=== PATIENT | male | born 1950 | race Caucasian/White ===

== ENCOUNTER 2023-02-02 12:14 | Outpatient (REF) | payer MEDICARE, SELFPAY | END 2023-02-02 12:15 | disposition home or self-care (01) | LOC: HO.LNP 12:14 | PROVIDERS: Visit Provider Internal Medicine | DX: Z00.00 Encounter for general adult medical examination without abnormal findings (principal); Z12.5 Encounter for screening for malignant neoplasm of prostate; E78.00 Pure hypercholesterolemia, unspecified; E11.9 Type 2 diabetes mellitus without complications; I10 Essential (primary) hypertension | CPT/HCPCS: 80053; 80061; 81001; 82043; 83036; 84153; 85025 ==

== ENCOUNTER 2023-08-11 10:36 | Outpatient (REF) | payer MEDICARE, SELFPAY ==
[2023-08-11 11:06] LABS: Estimated Average Glucose 160 mg/dL; Hemoglobin A1c % 7.2 % (<6.0)
[2023-08-11 11:14] LABS: Alanine Aminotransferase 41 U/L (0-40); Albumin Level 4.5 g/dL (3.5-5.0); Alkaline Phosphatase 79 U/L (39-117); Aspartate Amino Transferase 43 U/L (5-37); Bilirubin Direct 0.3 mg/dL (0.0-0.5); Bilirubin Total 0.8 mg/dL (0.0-1.0); Cholesterol 117 mg/dL (<200); Glucose Fasting 166 mg/dL (60-99); HDL Cholesterol 35 mg/dL (>40); LDL Cholesterol Calculated 50 mg/dL (<100); Triglycerides 161 mg/dL (<150)
[2023-08-11 13:28] LABS: Reflex LDLD? No
== END 2023-08-11 10:37 | disposition home or self-care (01) ==
LOC: HO.LNP 10:36
PROVIDERS: Visit Provider Internal Medicine
DX: E11.9 Type 2 diabetes mellitus without complications (principal); E78.00 Pure hypercholesterolemia, unspecified
CPT/HCPCS: 80061; 80076; 82947; 83036

== ENCOUNTER 2024-02-04 11:12 | Outpatient (REF) | payer MEDICARE, SELFPAY ==
[2024-02-04 11:17] LABS: MANUAL DIFF FLAG NO
[2024-02-04 11:42] LABS: Basophils Percent Auto 0.5 % (0-2); Eosinophils Absolute Auto 0.3 X10*3/uL (0.0-0.4); Eosinophils Percent Auto 3.8 % (0-4); Hematocrit 43.5 % (42.0-52.0); Hemoglobin 14.9 g/dl (14.0-18.0); Imm Gran Abs Auto 0.01 X10*3/uL (0.00-0.03); Imm Gran Pct Auto 0.1 % (0.0-0.4); Lymphocytes Percent Auto 39.5 % (20-40); Mean Corpuscular HGB Conc 34.3 g/dl (31.0-36.0); Mean Corpuscular Hemoglobin 31.2 pg (27.0-33.0); Mean Corpuscular Volume 91.2 fL (80.0-98.0); Mean Platelet Volume 10.2 fL (9.4-12.4); Monocytes Absolute Auto 0.6 X10*3/uL (0.1-1.2); Monocytes Percent Auto 8.3 % (2-11); Neutrophils Absolute Auto 3.6 x10*3/uL (2.0-8.3); Neutrophils Percent Auto 47.8 % (45-73); Platelet Count 210 X10*3/uL (160-400); Red Blood Count 4.77 X10*6/uL (4.60-5.80); White Blood Count 7.6 X10*3/uL (4.8-10.8)
[2024-02-04 11:49] LABS: Estimated Average Glucose 206 mg/dL; Hemoglobin A1c % 8.8 % (<6.0)
[2024-02-04 11:53] LABS: Alanine Aminotransferase 43 U/L (0-40); Albumin Level 4.4 g/dL (3.5-5.0); Alkaline Phosphatase 81 U/L (39-117); Anion Gap 13 (12-20); Aspartate Amino Transferase 45 U/L (5-37); Bilirubin Total 0.7 mg/dL (0.0-1.0); Blood Urea Nitrogen 24 mg/dL (9-16); Calcium 10.1 mg/dL (8.4-10.2); Carbon Dioxide 27 mmol/L (22-29); Chloride 102 mmol/L (96-108); Cholesterol 120 mg/dL (<200); Estimated Glomerular Filt Rate > 60; Glucose Fasting 158 mg/dL (60-99); HDL Cholesterol 34 mg/dL (>40); LDL Cholesterol Calculated 58 mg/dL (<100); Sodium 138 mmol/L (135-145); Total Protein 7.5 g/dL (6.5-8.0); Triglycerides 142 mg/dL (<150)
[2024-02-04 12:14] LABS: PSA,Total (Free>4and<10) 2.41 ng/mL (0.00-4.00)
[2024-02-04 12:23] LABS: Appearance Urine Clear; Color Urine Yellow; Glucose Urine UA Negative (Negative); Leukocyte Esterase Urine Negative (Negative); Nitrite Urine Negative (Negative); Specific Gravity - Urine 1.025 (1.005-1.025); Urine Blood Negative (Negative); Urine Ketones Negative (Negative); Urine Protein Trace mg/dL (Neg-Trace)
[2024-02-04 12:31] LABS: Bacteria Urine None Seen (None Seen); Creatinine Urine 188.52 mg/dL; Hyaline Casts Urine 0-2 /LPF (0-2); Microalbum/Creatinine Ratio Ur 19.6 ug/mg cr (<30); RBC Urine 0-2 /HPF (0-2); Squamous Epithelial Cell Urine 0-2 /HPF (0-2); WBC Urine 0-5 /HPF (0-5)
== END 2024-02-04 11:13 | disposition home or self-care (01) ==
LOC: HO.LNP 11:12
PROVIDERS: Visit Provider Internal Medicine
DX: E11.9 Type 2 diabetes mellitus without complications (principal); E78.00 Pure hypercholesterolemia, unspecified; I10 Essential (primary) hypertension; Z12.5 Encounter for screening for malignant neoplasm of prostate
CPT/HCPCS: 80053; 80061; 81001; 82043; 82570; 83036; 84153; 85025

== ENCOUNTER 2024-08-09 10:52 | Outpatient (REF) | payer MEDICARE, SELFPAY ==
[2024-08-09 11:15] LABS: Estimated Average Glucose 137 mg/dL; Hemoglobin A1C 184.4716 umol/L; Hemoglobin A1c % 6.4 % (<6.0); Total Hemoglobin (HGBA1C) 3998.0713 umol/L
[2024-08-09 11:22] LABS: Alanine Aminotransferase 32 U/L (0-40); Albumin Level 4.4 g/dL (3.5-5.0); Alkaline Phosphatase 71 U/L (39-117); Aspartate Amino Transferase 34 U/L (5-37); Bilirubin Direct 0.2 mg/dL (0.0-0.5); Bilirubin Total 0.7 mg/dL (0.0-1.0); Cholesterol 115 mg/dL (<200); Glucose Fasting 121 mg/dL (60-99); HDL Cholesterol 33 mg/dL (>40); LDL Cholesterol Calculated 51 mg/dL (<100); Total Protein 7.7 g/dL (6.5-8.0); Triglycerides 159 mg/dL (<150)
[2024-08-09 14:04] LABS: Reflex LDLD? No
== END 2024-08-09 10:53 | disposition home or self-care (01) ==
LOC: HO.LNP 10:52
PROVIDERS: Visit Provider Internal Medicine
DX: E11.9 Type 2 diabetes mellitus without complications (principal); E78.00 Pure hypercholesterolemia, unspecified
CPT/HCPCS: 80061; 80076; 82947; 83036

== ENCOUNTER 2025-02-09 11:06 | Outpatient (REF) | payer MEDICARE, SELFPAY ==
--- OUTSIDE RECORDS SUMMARY | 2025-02-09 03:00 | XMS_ITS ---
Author Organization Rancho Lopez MD Address [address] [place] [id number] Care Team Providers Care Concierge Receptionist Name Role Phone JohnKyleighn Primary Care Provider [phone] REASON FOR VISIT yearly fasting labs Encounters Encounter Location Date Provider Diagnosis Rancho Lopez MD [address] [place] [phone] 02/09/2025 Rancho Lopez Blood tests for rout ine general physical examination Z00.00 ; Type 2 diabetes mellitus without complication E11.9 ; Pure hypercholesterolemia E78.00 and Essential hypertension I10 Assessments Encounter Date Diagnosis (ICD Code) Assessment Notes Treatment Notes Treatment Clinical Notes Section Notes 02/09/2025 Blood tests for rout ine general physical examination (ICD-10 - Z00.00) 02/09/2025 Type 2 diabetes shaquille itus without complication (ICD-10 - E11.9) 02/09/2025 Pure hypercholesterolemia (ICD-10 - E78.00) 02/09/2025 Essential hypertensi on (ICD-10 - I10) Plan Of Treatment Pending Test Test Name Order Date Complete Blood Count Auto Diff 5 Comprehensive [place]. Panel Fast 5 Lipid Panel 02/09/2025 PSA,Total (Free>4and<10) 02/09/2025 Microalbumin, Random 02/09/2025 Hemoglobin A1c 02/09/2025 UA ClnCatch+Micro w/rflx Cult 02/09/2025 Next Appt Details Provider Name:Rancho Oleary ier, 02/16/2025 08:00:00 AM, [address] [facility], [address], [place], [place], [phone], Progress Notes * Celestine JOYCE LDOB:[birth year] (75 yo M)Acc No.[id number]:02/09/2025 Progress Note Patient: Celestine GASTON Provider: Ankita Lopez MD :1950 A ge:75 Y S ex:Male Date:02/09/2025 Address:[address] [place] [address], [facility] Subjective: * Chief Complaints: * 1 . Yearly fasting labs. * Medical History: Objective: * Vitals: Assessment: * Assessment: 1. B lood tests for routine general physical examination - Z00.00 (Primary) 2 .?Type 2 diabetes mellitus without complication - E11.9 3 . P ure hypercholesterolemia - E78.00 4 . E ssential hypertension - I10 Plan: * Treatment: 2. T ype 2 diabetes mellitus without complication L AB: Complete Blood Count Auto Diff L AB: Comprehensive [place]. Panel Fast L AB: Lipid Panel L AB: PSA,Total (Free>4and<10) L AB: Microalbumin, Random L AB: Hemoglobin A1c L AB: UA ClnCatch+Micro w/rflx Cult 3. P ure hypercholesterolemia L AB: Complete Blood Count Auto Diff L AB: Comprehensive [place]. Panel Fast L AB: Lipid Panel L AB: PSA,Total (Free>4and<10) L AB: Microalbumin, Random L AB: Hemoglobin A1c L AB: UA ClnCatch+Micro w/rflx Cult 4. E ssential hypertension L AB: Complete Blood Count Auto Diff L AB: Comprehensive [place]. Panel Fast L AB: Lipid Panel L AB: PSA,Total (Free>4and<10) L AB: Microalbumin, Random L AB: Hemoglobin A1c L AB: UA ClnCatch+Micro w/rflx Cult * Procedure Codes: 3 6415 VENIPUNCT, ROUTINE* * * The named appointment provid er may or may not be the originator of this progress note, and it is not deemed complete until electronically signed by the appointment provider. Sign off status: Pending * Provider: Ankita Lopez MD Date: 02/09/2025 Generated for Marie grider/Misael/Erica on: 02/09/2025 11:58 AM EDT
[2025-02-09 11:12] LABS: MANUAL DIFF FLAG NO
--- OUTSIDE RECORDS SUMMARY | 2025-02-09 11:58 | XMS_ITS | Patient Health Record ---
Author Organization [facility] Address [address] [place] [phone] Care Team Providers Care Leave Coordinator Name Role Phone Rancho Lopez MD Primary Care Provider Jose Weaver [phone] Allergies Allergen (clinical drug ingredient) Drug/Non Drug Allergy documented on EMR Reaction Allergy Type Onset Date Status IVP Dye (uncoded) Unknown Allergy Ac tive Reason For Referral No Information Medications Medication SIG (Take, Route, Fr equency, Duration) Notes Start Date End Date Status Pristiq 50 MG 1 tablet Orally Once a day Active Crestor 40 MG 1 tablet Orally Once a day Active Plavix 75 MG 1 tablet Orally Once a day Active Ambien 5 MG 1 tablet at bedtime Orally Once a day Active MoviPrep 100 GM as directed Orally A S DIRECTED for 1 dose 12/29/2013 Active Problems Problem Type SNOMED Code ICD Code Onset Dates Problem Status W/U Status Risk Notes Problem Screening for malignant neoplasm of colon (344908731) Screening for colorectal cancer (V76.51) Active confirmed Problem Long-term current use of drug therapy (729757958) USP current use of antithrombotics /antiplatelets (V58.63) Active confirmed Plan Of Treatment Future Test Test Name Order Date COLONOSCOPY 12/29/2013 Insurance Providers Payer Name Payer Address Payer Phone Subscriber Number Group Number Insured Name Patient Relationship to Insured Coverage Start Date Coverage End Date [facility] [address] [place]A [id number] TOMMIE KENDALL Self - patient is the insured Medical (General) History Medical History History ICD Code Denies CO,DM,CVA,Lung disease,renal dise ase Hyperlidiemia Depression Neg. colonoscopy in 06/2001 with , and a negative colonoscopy in the early s with Dr. Rush On Plavix for a ? of a TIA Surgical History Surgery Date(Month/Year) knee surgery 2012 back surgery--L5 disc 1997 [facility]
--- OUTSIDE RECORDS SUMMARY | 2025-02-09 11:58 | XMS_ITS ---
[facility] Name [facility] Encounters Encounter Type Encounter Reason Primary Diagnosis Location Date Ambulatory Age-related nucl ear cataract, right eye [facility] 02/24/2022 Ambulatory Age-related nucl ear cataract, left eye [facility] 01/13/2022 Care Team Organization Name Specialty Phone Email Start Date End Da te [facility] 02/24/2022 [facility] 01/13/2022 02/24/2022
--- OUTSIDE RECORDS SUMMARY | 2025-02-09 11:58 | XMS_ITS | Clinical Summary ---
Author Organization [facility] Address [address] [place] [address] Care Team Providers Care Auto Research Engineer Name Role Phone Unknown Primary Care Provider [phone] Social History Tobacco Use Types Packs/Day Years Used Date Smoking Tobacco: Never Assessed Sex and Gender Information Value Date Recorded Sex Assigned at Not on file Legal Sex Male 6:39 PM EST Gender Identity Not on file Sexual Orientation Not on file Plan of Treatment Health Maintenance Due Date Last Done Comments Hepatitis C Virus Screening 1950 DTaP/Tdap/Td Vaccines (1 - Tdap) 01/09/1971 Colonoscopy 01/09/1997 Pneumococcal Vaccines 50+ (1 of 1 - PCV) 01/09/2002 Zoster (Shingles) Vaccine (1 of 2) 01/09/2002 COVID-19 Vaccine (3 - season) 2024 11/15/2020, 10/24/2020 Influenza Vaccine 02/24/2025 04/19/2018, , 04/24/2015, Additional history exists RSV Vaccine 60 years and older and Patients (1 - 1-dose 75+ series) 01/09/2027 Hepatitis B Vaccines Aged Out No long er eligible based on patient's age to complete this topic Medical Devices Implanted Type Area Ignition Expert Device Identifier Shelf Expiration Date Model / Serial / Lot [id number] Implanted:Qty: 1 on 01/13/2022 by Chuck Wilson MD at [facility], [place] [employer] [id number] / [id number] / [id number] Implanted:Qty: 1 on 02/24/2022 by Chuck Wilson MD at [facility], [place] [employer] [employer] [id number] / [id number] / [place] [id number] [employer] Care Teams Auto Research Engineer Relationship Specialty Start Date End Date Unknown Unknow Provider Address PCP - General 02/14/22
[2025-02-09 12:02] LABS: Hematocrit 45.2 % (42.0-52.0); Hemoglobin 15.4 g/dl (14.0-18.0); Imm Gran Abs Auto 0.02 X10*3/uL (0.00-0.03); Imm Gran Pct Auto 0.3 % (0.0-0.4); Lymphocytes Absolute Auto 3.2 X10*3/uL (1.2-4.9); Mean Corpuscular HGB Conc 34.1 g/dl (31.0-36.0); Mean Corpuscular Hemoglobin 30.9 pg (27.0-33.0); Mean Corpuscular Volume 90.8 fL (80.0-98.0); NRBC Abs Auto 0.000 X10*3/uL (0.0-0.012); NRBC Pct Auto 0.0 /100WBC (0.0-0.2); Platelet Count 220 X10*3/uL (160-400); Red Blood Count 4.98 X10*6/uL (4.60-5.80); White Blood Count 7.7 X10*3/uL (4.8-10.8)
[2025-02-09 12:13] LABS: Alanine Aminotransferase 58 U/L (0-40); Albumin Level 4.5 g/dL (3.5-5.0); Alkaline Phosphatase 86 U/L (39-117); Anion Gap 13 (12-20); Appearance Urine Clear; Aspartate Amino Transferase 45 U/L (5-37); Blood Urea Nitrogen 16 mg/dL (9-16); Calcium 9.4 mg/dL (8.4-10.2); Carbon Dioxide 27 mmol/L (22-29); Chloride 103 mmol/L (96-108); Cholesterol 232 mg/dL (<200); Estimated Glomerular Filt Rate > 60; Glucose Urine UA Negative (Negative); HDL Cholesterol 37 mg/dL (>40); PH 5.0 (5.0-9.0); Potassium 4.5 mmol/L (3.3-5.1); Sodium 138 mmol/L (135-145); Specific Gravity - Urine 1.020 (1.005-1.025); Total Protein 7.5 g/dL (6.5-8.0); Triglycerides 222 mg/dL (<150)
[2025-02-09 12:16] LABS: Microalbum/Creatinine Ratio Ur 16.0 ug/mg cr (<30)
[2025-02-09 12:22] LABS: Hemoglobin A1C 198.8246 umol/L; Total Hemoglobin (HGBA1C) 3989.6279 umol/L
[2025-02-09 12:32] LABS: PSA,Total (Free>4and<10) 2.55 ng/mL (0.00-4.00)
== END 2025-02-09 11:07 | disposition home or self-care (01) ==
LOC: HO.LNP 11:06
PROVIDERS: Visit Provider Internal Medicine
DX: Z00.00 Encounter for general adult medical examination without abnormal findings (principal); I10 Essential (primary) hypertension; E11.9 Type 2 diabetes mellitus without complications; E78.00 Pure hypercholesterolemia, unspecified
CPT/HCPCS: 80053; 80061; 81001; 82043; 82570; 83036; 84153; 85025

== ENCOUNTER 2025-05-19 10:41 | Outpatient (REF) | payer MEDICARE, SELFPAY ==
--- OUTSIDE RECORDS SUMMARY | 2024-02-11 04:00 | XMS_ITS ---
Author Organization Rancho Lopez MD Address [address] [place] [phone] Care Team Providers Care Medical Tech Name Role Phone Rancho Lopez Primary Care Provider Allergies Allergen (clinical drug ingredient) Drug/Non Drug Allergy documented on EMR Reaction Allergy Type Onset Date Status paroxetine Paxil sexual dysfunction Drug Allergy Active lisinopril Lisinopril cough Drug Allergy Activ e ivp dye (uncoded) SWELLING Allergy Ac tive Results Component Value Reference Range Notes Occult Blood, Stool, Guaiac Reviewed date:02/11/2024 10:26:04 AM Interpretation:Negative Performing Lab: Notes/Report: Negative Occult Blood, Stool, Guaiac Neg REASON FOR VISIT ANNUAL EXAM, CBACK A1C Medications Medication SIG (Take, Route, Frequency, Duration) Notes Start Date End Date Status Ambien 5 MG 1 tablet at bedtime Orally Once a day 08/22/2011 Not-Taking CeleBREX 200 MG 1 capsule Orally Onc e a day for 90 days 05/20/2016 Not-Taking Trulicity 0.75 MG/0.5ML as directed Subc utaneous weekle for 30 days 02/11/2024 Active Ambien 5 MG 1 tablet at bedtime Orally Once a day for 90 days 07/04/2016 Not-Taking Valsartan-hydroCHLOROthi azide 80-12.5 MG TAKE ONE TABLET BY MOUTH EVERY DAY Orally Once a day for 90 days Active Ketoconazole 2 % 1 application to affected area Externally Once a day for 30 days 10/15/2018 Active metFORMIN HCl 500 MG TAKE 1 TABLET BY MO [facility] DAILY WITH MEALS Orally twice a day for 90 days Active Rosuvastatin Calcium 40 MG TAKE ONE TABLET BY MOUTH ONCE DAILY Active Aspirin Adult Low Dose 81 MG 1 tablet Orally Once a day for 30 day(s) 01/12/2018 Active Social History Tobacco Use: Social History Observation Description Date Details (start date - stop date) Former Smoker NA - NA Tobacco Use/Smoking Question Answer Notes Patient is a former smoker How long has it been since y ou last smoked? > 10 years Additional Findings: Tobacco Non-User Fo rmer smoker, currently using no form of tobacco Alcohol Screen Question Answer Notes Did you have a drink containing alcohol in the p ast year? No Points 0 Interpretation Negative Problems Problem Type SNOMED Code ICD Code Onset Dates Problem Status W/U Status Risk Notes Problem [id number] DESMOND (obstructive sleep apnea) (G47.33) Active confirmed Vital Signs Blood pressure systolic 104 mm Hg 02/11/20 24 Blood pressure diastolic 66 mm Hg 024 Height 67.50 in 02/11/2024 Weight 236 lbs 02/11/2024 BMI 36.41 kg/m2 02/11/2024 weight is up 3 pounds since 08-18-23 Encounters Encounter Location Date Provider Diagnosis Rancho Lopez MD [address] [place] [address] [address] [place], [place] [phone] 02/11/2024 Rancho Lopez DESMOND (obstructive sle ep apnea) G47.33 ; Annual physical exam Z00.00 ; Type 2 diabetes mellitus without complication E11.9 ; Pure hypercholesterolemia E78.00 ; Essential hypertension I10 ; Colon cancer screening Z12.11 and Encounter for screening for depression Z13.31 Assessments Encounter Date Diagnosis (ICD Code) Assessment Notes Treatment Notes Treatment Clinical Notes Section Notes 02/11/2024 DESMOND (obstructive sle ep apnea) (ICD-10 - G47.33) sounds like he has it. refuses a study. 02/11/2024 Annual physical exam (ICD-10 - Z00.00) labs reviewed and discussed with patient 02/11/2024 Type 2 diabetes mellitus without complication (ICD-10 - E11.9) patient verbalized understanding of medication and dirctions for use 02/11/2024 Pure hypercholesterolemia (ICD-10 - E78.00) stable, will continue current regiment 02/11/2024 Essential hypertensi on (ICD-10 - I10) stable, will continue current regiment 02/11/2024 Colon cancer screeni ng (ICD-10 - Z12.11) guaiac negative 02/11/2024 Encounter for screen ing for depression (ICD-10 - Z13.31) negative screen Plan Of Treatment Medication Medication Name Sig Start Date Stop Date Notes Trulicity 0.75 MG/0.5ML as directed Subc utaneous weekle for 30 days 02/11/2024 Treatment Notes Assessment Notes DESMOND (obstructive sleep apnea) sounds lik e he has it. refuses a study. Annual physical exam labs reviewed and d iscussed with patient Type 2 diabetes mellitus without complic ation patient verbalized understanding of medication and dirctions for use Pure hypercholesterolemia stable, will c ontinue current regiment Essential hypertension stable, will cont inue current regiment Colon cancer screening guaiac negative Encounter for screening for depression n egative screen Next Appt Details Follow Up: 3 Months, Reason: Provider Name:Rancho gurrola, 05/26/2025 10:15:00 AM, [address] [place] [address], [address], [phone], Provider Name:Rancho gurrola, 02/12/2026 07:45:00 AM, [address] [place] [address], [address], [phone], Provider Name:Rancho gurrola, 02/19/2026 09:30:00 AM, [address] [place] [address], [address], [phone], Progress Notes * Celestine JOYCE LDOB:[birth year] (74 yo M)Acc No.[id number]:02/11/2024 Progress Notes Patient: Bonnie kristyCelestine castillo Provider: Ankita Lopez MD :1950 A ge:74 Y S ex:Male Date:02/11/2024 Address:[address] [place], [place] [address], [id number] Subjective: * Chief Complaints: * A NNUAL EXAMCBACK A1C * HPI: D epression Screening: PHQ-9 L ittle interest or pleasure in doing things N ot at all, F eeling down, depressed, or hopeless N ot at all, T rouble falling or staying asleep, or sleeping too much N ot at all, F eeling tired or having little energy N ot at all, P oor appetite or overeating N ot at all, F eeling bad about yourself or that you are a failure, or have let yourself or your family down N ot at all, T rouble concentrating on things, such as reading the newspaper or watching television N ot at all, M oving or speaking so slowly that other people could have noticed; or the opposite, being so fidgety or restless that you have been moving around a lot more than usual N ot at all, T houghts that you would be better off or of hurting yourself in some way N ot at all, T otal Score 0 . I nterpretation and Intervention D epression Screening Findings N egative, F ollow-Up for Depression : review of PHQ-9 found negative result, no follow-up needed. C ommunication Needs: Communication Needs D oes the patient have a hearing impairment N o, D oes the patient have a vision impairment? Y es, I f yes, what is the vision impairment? G lasses, D oes the patient have a cognition impairment? N o. F all Risk: History H ave you had any falls with injury in the past year? N o, H ave you had two or more falls in the past year? N o. S SUGAR Questions: SDOH Questions I n the past year have you been worried about losing housing? N o, I n the past year have you or any family members you live with been unable to get any of the following when it was really needed? Check all that apply: N one. S ymptom(s): patient is a 74 yo male here for annual visit with review of recent labs and follow up of chronic issues, in morning wakes up and is tired. * ROS: G eneral/Constitutional: Patient denies f atigue , headache. C hange in appetite?denies. C hills d enies. F ever d enies. O phthalmologic: Blurred vision d enies. D ischarge d enies. P ain d enies. E NT: Patient denies d ecreased sense of smell , any loss of taste , sore throat. D ecreased hearing d enies. S ore throat d enies. S wollen glands d enies. E ndocrine: Cold intolerance d enies. E xcessive thirst d enies. H eat intolerance d enies. W eight loss d enies. R espiratory: Cough d enies. S hortness of breath at rest d enies. S hortness of breath with exertion d enies. W heezing d enies. C ardiovascular: Chest pain at rest d enies. C hest pain with exertion?denies. I rregular heartbeat d enies. S hortness of breath d enies. ? G astrointestinal: Abdominal pain d enies. C hange in bowel habits d enies. D iarrhea d enies. N ausea d enies. R ectal bleeding d enies. V omiting d enies . G enitourinary: Blood in urine d enies. D ifficulty urinating d enies. F requent urination d enies. M usculoskeletal: Patient denies m uscle aches. P ainful joints d enies. W eakness d enies. P eripheral Vascular: Patient denies r ed and blue toes. S kin: Dry skin d enies. I tching d enies. D enies?Mole(s), changes in moles, new moles or any lesions of concern. D enies P hotosensitivity. R familia d enies. N eurologic: Dizziness d enies. F ainting d enies. H eadache?denies. * Medical History: * Surgical History: * Hospitalization/Major Diagno stic Procedure: * Family History: F ather: 70 yrs, diagnosed with Cancer. M other: 62 yrs, diagnosed with Cancer. 1 daughter(s) . . No pertinent family medical history, Denies mental health/substance abuse family history, No pertinent family medical history. * Social History: T obacco Use: T obacco Use/Smoking P atient is a f ormer smoker, H ow long has it been since you last smoked? > 10 years, A dditional Findings: Tobacco Non-User F ormer smoker, currently using no form of tobacco. D rugs/Alcohol: A lcohol Screen D id you have a drink containing alcohol in the past year? N o, P oints 0 , I nterpretation N egative. M iscellaneous: C affeine: yes, frequency:, more than 4 cups per day. Children: yes. no Community involvements. Exercise: yes, yardwork hike fishing. Home smoke detector use: yes. Housing: owning. Living with: spouse. Marital status: . Occupation: retired. Pets: cats:1. no Travel outside of the [place]. * Medications: T akingAspirin Adult Low Dose 81 MG Tablet Delayed Release 1 tablet Orally Once a daymetFORMIN HCl 500 MG Tablet TAKE 1 TABLET BY MOUTH DAILY WITH MEALS Orally twice a dayRosuvastatin Calcium 40 MG Tablet TAKE ONE TABLET BY MOUTH ONCE DAILY Ketoconazole 2 % Cream 1 application to affected area Externally Once a dayValsartan-hydroCHLOROthiazide 80-12.5 MG Tablet TAKE ONE TABLET BY MOUTH EVERY DAY Orally Once a dayTaking Aspirin Adult Low Dose 81 MG Tablet Delayed Release 1 tablet Orally Once a dayTaking metFORMIN HCl 500 MG Tablet TAKE 1 TABLET BY MOUTH DAILY WITH MEALS Orally twice a dayTaking Rosuvastatin Calcium 40 MG Tablet TAKE ONE TABLET BY MOUTH ONCE DAILY Taking Ketoconazole 2 % Cream 1 application to affected area Externally Once a dayTaking Valsartan-hydroCHLOROthiazide 80-12.5 MG Tablet TAKE ONE TABLET BY MOUTH EVERY DAY Orally Once a dayNot-Taking/PRNCeleBREX 200 MG Capsule 1 capsule Orally Once a dayAmbien 5 MG Tablet 1 tablet at bedtime Orally Once a dayAmbien 5 MG Tablet 1 tablet at bedtime Orally Once a dayMedication List reviewed and reconciled with the patientNot-Taking/PRN CeleBREX 200 MG Capsule 1 capsule Orally Once a dayNot-Taking/PRN Ambien 5 MG Tablet 1 tablet at bedtime Orally Once a dayNot-Taking/PRN Ambien 5 MG Tablet 1 tablet at bedtime Orally Once a dayMedication List reviewed and reconciled with the patient * Allergies: i vp product management dye: SWELLINGPaxil: sexual dysfunctionLisinopril: coughyes[Allergies Verified] Objective: * Vitals: H t: 67.50, Wt:236, BMI:36.41, BP:104/66 weight is up 3 pounds since 08-18-23. * P ast Orders: L ab:Lipid Panel (Order Date - 02/04/2024) (Collection Date - 02/04/2024) Value Reference Range Triglycerides 142 <150 - mg/dL Cholesterol 120 <200 - mg/dL LDL Cholesterol Calculated 58 <100 - mg/dL HDL Cholesterol 34 L >40 - mg/dL L ab:PSA,Total (Free>4and<10) (Order Date - 02/04/2024) (Collection Date - 02/04/2024) Value Reference Range PSA,Total (Free>4and<10) 2.41 0.00-4.00 - ng/ mL L ab:Microalbumin, Random (Order Date - 02/04/2024) (Collection Date - 02/04/2024) Value Reference Range Creatinine Urine 188.52 - mg/dL Microalbumin Urine 37.0 - mg/L Microalbum Creatinine Ratio Ur 19.6 <30 - ug/ mg cr L ab:UA ClnCatch+Micro w/rflx Cult (Order Date - 02/04/2024) (Collection Date - 02/04/2024) Value Reference Range Color Urine Yellow - Appearance Urine Clear - PH 5.0 5.0-9.0 - Glucose Urine UA Negative Negative - mg/dL Urine Blood Negative Negative - Specific [place] - Urine 1.025 1.005-1.025 - Urine Protein Trace Neg-Trace - mg/dL Urine Ketones Negative Negative - mg/dL Nitrite Urine Negative Negative - Leukocyte Esterase Urine Negative Negative - RBC Urine 0-2 0-2 - /HPF WBC Urine 0-5 0-5 - /HPF Squamous Epithelial Cell Urine 0-2 0-2 - /HP F Bacteria Urine None Seen None Seen - Hyaline Casts Urine 0-2 0-2 - /LPF L ab:Complete Blood Count Auto Diff (Order Date - 02/04/2024) (Collection Date - 02/04/2024) Value Reference Range White Blood Count 7.6 4.8-10.8 - X10*3/uL Red Blood Count 4.77 4.60-5.80 - X10*6/uL Hemoglobin 14.9 14.0-18.0 - g/dl Hematocrit 43.5 42.0-52.0 - % Mean Corpuscular Volume 91.2 80.0-98.0 - fL Mean Corpuscular Hemoglobin 31.2 27.0-33.0 - pg Mean Corpuscular HGB Conc 34.3 31.0-36.0 - g/ dl Red Cell Distribution Width 13.0 11.0-16.0 - % Platelet Count 210 160-400 - X10*3/uL Mean Platelet Volume 10.2 9.4-12.4 - fL Neutrophils Percent Auto 47.8 45-73 - % Imm Gran Pct Auto 0.1 0.0-0.4 - % Lymphocytes Percent Auto 39.5 20-40 - % Monocytes Percent Auto 8.3 2-11 - % Eosinophils Percent Auto 3.8 0-4 - % Basophils Percent Auto 0.5 0-2 - % NRBC Pct Auto 0.0 0.0-0.2 - /100WBC Neutrophils Absolute Auto 3.6 2.0-8.3 - x10* 3/uL Imm Gran Abs Auto 0.01 0.00-0.03 - X10*3/uL Lymphocytes Absolute Auto 3.0 1.2-4.9 - X10* 3/uL Monocytes Absolute Auto 0.6 0.1-1.2 - X10*3/ uL Eosinophils Absolute Auto 0.3 0.0-0.4 - X10* 3/uL Basophils Absolute Auto 0.0 0.0-0.2 - X10*3/ uL NRBC Abs Auto 0.000 0.0-0.012 - X10*3/uL L ab:Comprehensive Martin. Panel Fast (Order Date - 02/04/2024) (Collection Date - 02/04/2024) Value Reference Range Sodium 138 135-145 - mmol/L Bilirubin Total 0.7 0.0-1.0 - mg/dL Aspartate Amino Transferase 45 H 5-37 - U/L Alanine Aminotransferase 43 H 0-40 - U/L Total Protein 7.5 6.5-8.0 - g/dL Albumin Level 4.4 3.5-5.0 - g/dL Alkaline Phosphatase 81 39-117 - U/L Potassium 4.0 3.3-5.1 - mmol/L Chloride 102 96-108 - mmol/L Carbon Dioxide 27 22-29 - mmol/L Anion Gap 13 12-20 - Blood Urea Nitrogen 24 H 9-16 - mg/dL Creatinine 1.06 0.5-1.4 - mg/dL Estimated Glomerular Filt Rate > 60 - Glucose Fasting 158 H 60-99 - mg/dL Calcium 10.1 8.4-10.2 - mg/dL L ab:Hemoglobin A1c (Order Date - 02/04/2024) (Collection Date - 02/04/2024) Result: [facility] 02/10 Value Reference Range Hemoglobin A1c % 8.8 H <6.0 - % Estimated Average Glucose 206 - mg/dL * Examination: G eneral Examination: GENERAL APPEARANCE: w ell developed, well nourished, in no acute distress. HEAD: n ormocephalic, atraumatic. EYES: p upils equal, round, reactive to light and accommodation, sclera non-icteric. EARS: n ormal. ORAL CAVITY: m ucosa moist. THROAT: c lear. NECK/THYROID: n haley supple, full range of motion, no cervical lymphadenopathy, no bruits. SKIN: w arm and dry, no suspicious lesions. HEART: r egular rate and rhythm, S1, S2 normal, no murmurs.? LUNGS: c lear to auscultation bilaterally. ABDOMEN: s oft, nontender, nondistended, bowel sounds present, normal, no organomegaly , no masses palpable. RECTAL EXAM: n ormal tone, no external hemorrhoids, no masses palpable, prostate normal, stool guaiac negative. MALE GENITOURINARY: circumcised, no penile lesions or discharge, testes descended bilaterally, no testicular mass. EXTREMITIES: n o clubbing, cyanosis, or edema. NEUROLOGIC: n onfocal, motor strength normal upper and lower extremities, sensory exam intact. PODIATRIC: n ormal pinprick, normal pulse, normal light touch. FOOT EXAM: . Assessment: * Assessment: 1. A nnual physical exam - Z00.00 (Primary) 2 . O SA (obstructive sleep apnea) - G47.33?3. T ype 2 diabetes mellitus without complication - E11.9 4 . P ure hypercholesterolemia - E78.00 5 . E ssential hypertension - I10 6 . C olon cancer screening - Z12.11 7 . E ncounter for screening for depression - Z13.31 Plan: * Treatment: 2. O SA (obstructive sleep apnea) Start Trulicity Solution Pen-injector, 0.75 MG/0.5ML, as directed, Subcutaneous, weekle, 30 days, 4, Refills 1. Notes: sounds like he has it. refuses a study. 3. T ype 2 diabetes mellitus without complication Notes: patient verbalized understanding of medication and dirctions for use. 4. P ure hypercholesterolemia Notes: stable, will continue current regiment. 5. E ssential hypertension Notes: stable, will continue current regiment. 6. C olon cancer screening L AB: Occult Blood, Stool, Guaiac N egative Value Reference Range O ccult Blood, Stool, Guaiac Neg Notes: guaiac negative.??7.?Encounter for screening for depression? Notes: negative screen.?? * Procedure Codes: 8 2270 TEST FOR BLOOD, FECES * Preventive Medicine: Counseling: C are goal follow-up plan: C thaisnseling for abnormal BMI provided?Yes, A keyur Normal BMI Follow-up G yin encouragement to exercise. Diabetes Care Plan: P atient Lifestyle Goals N eeds to maintain diet control.?Treatment Goals A 1C< 7. B arriers N eeds better diet control. S elf-Managment Plan I ncrease light exercise to 3 times a week for 30 minutes. * Follow Up: 3 Months * * Sign off status: Completed true * Provider: Ankita Lopez MD Date: 0 02/11/2024 Generated for Marie grider/Misael/Mariosmitting on: 1 12:20 PM EDT History and Physical Notes * HPI (History of Present Illness) Category Sub-Category Detail Notes Category Not es Symptom(s) patient is a 74 yo male here for annual visit with review of recent labs and follow up of chronic issues, in morning wakes up and is tired Depression Screening PHQ-9 Little inte rest or pleasure in doing things: Not at all Feeling down, depressed, or hopeless: No t at all Trouble falling or staying asleep, or sl eeping too much: Not at all Feeling tired or having little energy: N ot at all Poor appetite or overeating: Not at all Feeling bad about yourself o r that you are a failure, or have let yourself or your family down: Not at all Trouble concentrating on thi ngs, such as reading the newspaper or watching television: Not at all Moving or speaking so slowly that other people could have noticed; or the opposite, being so fidgety or restless that you have been moving around a lot more than usual: Not at all Thoughts that you would be b hung off or of hurting yourself in some way: Not at all Total Score: 0 Interpretation and Intervention Depression Lisa najera Findings: Negative Follow-Up for Depression: : review of PH Q-9 found negative result, no follow-up needed SDOH Questions SDOH Questions In the past year have you been worried about losing housing?: No In the past year have you or any family members you live with been unable to get any of the following when it was really needed? Check all that apply:: None Fall Risk History Have you had any falls with injury i n the past year?: No Have you had two or more falls in the st year?: No Communication Needs Communication Needs Does the patient have a hearing impairment: No Does the patient have a vision impairmen t?: Yes If yes, what is the vision impairment?: Glasses Does the patient have a cognition impair ment?: No Examination Category Sub-Category Detail Notes Category Not es General Examination GENERAL APPEARANCE: well dev eloped, well nourished, in no acute distress HEAD: normocephalic, atrau matic EYES: pupils equal, round, reactive to light and accommodation, sclera non-icteric EARS: normal THROAT: clear NECK/THYROID: neck supple, full ra nge of motion, no cervical lymphadenopathy, no bruits HEART: regular rate and rhy thm, S1, S2 normal, no murmurs LUNGS: clear to auscultatio n bilaterally ABDOMEN: soft, nontender, non distended, bowel sounds present, normal, no organomegaly , no masses palpable NEUROLOGIC: nonfocal, motor stre ngth normal upper and lower extremities, sensory exam intact SKIN: warm and dry, no bong picious lesions EXTREMITIES: no clubbing, cyanosi s, or edema MALE GENITOURINARY: circumcised, no peni le lesions or discharge, testes descended bilaterally, no testicular mass RECTAL EXAM: normal tone, no exte rnal hemorrhoids, no masses palpable, prostate normal, stool guaiac negative ORAL CAVITY: mucosa moist FOOT EXAM: Date: 02/11/2024 normal pinprick . normal pulse. normal light touch. PODIATRIC: normal pinprick, nor mal pulse, normal light touch
--- OUTSIDE RECORDS SUMMARY | 2024-03-07 05:39 | XMS_ITS ---
Author Organization Rancho Lopez MD Address [address] [place] [phone] Care Team Providers Care Exotic Dancer Name Role Phone Rancho Lopez Primary Care Provider Medications Medication SIG (Take, Route, Fr equency, Duration) Notes Start Date End Date Status Trulicity 1.5 MG/0.5ML as directed Subcu taneous weekle for 30 days 02/11/2024 Active Encounters Encounter Location Date Provider Diagnosis Rancho Lopez MD 10 [facility] [address] [place] [phone] 03/07/2024 Rancho Lopez DESMOND (obstructive sleep apnea) G47.33 Assessments Encounter Date Diagnosis (ICD Code) Assessment Notes Treatment Notes Treatment Clinical Notes Section Notes 03/07/2024 DESMOND (obstructive sleep apnea) (ICD-10 - G47.33) Plan Of Treatment Medication Medication Name Sig Start Date Stop Date Notes Trulicity 1.5 MG/0.5ML as directed Subcu taneous weekle for 30 days 02/11/2024 Next Appt Details Provider Name:Rancho gurrola, 05/26/2025 10:15:00 AM, [facility], [address] [place] [address], [phone], Provider Name:Rancho gurrola, 02/12/2026 07:45:00 AM, [address], [address], [place], [phone], Provider Name:Rancho Oleary ier, 02/19/2026 09:30:00 AM, [address], [address], [place], [place], [phone], Progress Notes * Celestine JOYCE LDOB:[birth year] (74 yo M)Acc No.[id number]:03/07/2024 Patient: Celestine Young :1950 A ge:74 Y S ex:Male Address:[address] [place] [address], [place] [address] * Refills Continue Trulicity Solution Pen-injector, 1.5 MG/0.5ML, Subcutaneous, 4, as directed, weekle, 30 days, Refills=3 * true * Date: Generated for Marie grider/Misael/eTkinjalsmitting on: 1 12:21 PM EDT
--- OUTSIDE RECORDS SUMMARY | 2024-04-04 05:54 | XMS_ITS ---
Author Organization Rancho Lopez MD Address [address] [place] [phone] Care Team Providers Care Guitar Instructor Name Role Phone Rancho Lopez Primary Care Provider [phone] REASON FOR VISIT refill Medications Medication SIG (Take, Route, Fr equency, Duration) Notes Start Date End Date Status Trulicity 3 MG/0.5ML as directed Subcuta neous weekle for 30 days 02/11/2024 Active Encounters Encounter Location Date Provider Diagnosis Rancho Lopez MD 10 [facility] [address] [place] [phone] 04/04/2024 Rancho Lopez DESMOND (obstructive sleep apnea) G47.33 Assessments Encounter Date Diagnosis (ICD Code) Assessment Notes Treatment Notes Treatment Clinical Notes Section Notes 04/04/2024 DESMOND (obstructive sleep apnea) (ICD-10 - G47.33) Plan Of Treatment Medication Medication Name Sig Start Date Stop Date Notes Trulicity 3 MG/0.5ML as directed Subcuta neous weekle for 30 days 02/11/2024 Next Appt Details Provider Name:Rancho gurrola, 05/26/2025 10:15:00 AM, [facility], [address] [place] [address], [phone], Provider Name:Rancho gurrola, 02/12/2026 07:45:00 AM, [address], [address], [place], [phone], Provider Name:Rancho Oleary ier, 02/19/2026 09:30:00 AM, [address], [address], [place], [phone], Progress Notes * Celestine JOYCE LDOB:[birth year] (74 yo M)Acc No.[id number]:04/04/2024 Patient: Celestine Young :1950 A ge:74 Y S ex:Male Address:[address] [place] [address], [place] [address] * Refills Refill Trulicity Solution Pen-injector, 3 MG/0.5ML, Subcutaneous, 4, as directed, weekle, 30 days, Refills=3 * true * Date: Generated for Marie grider/Misael/Mariosmitting on: 1 12:20 PM EDT
--- OUTSIDE RECORDS SUMMARY | 2024-05-03 04:45 | XMS_ITS ---
Author Organization Rancho Lopez MD Address [address] [place] [phone] Care Team Providers Care Care Consultant Name Role Phone Rancho Lopez Primary Care Provider [phone] Allergies Allergen (clinical drug ingredient) Drug/Non Drug Allergy documented on EMR Reaction Allergy Type Onset Date Status paroxetine Paxil sexual dysfunction Drug Allergy Active lisinopril Lisinopril cough Drug Allergy Activ e ivp dye (uncoded) SWELLING Allergy Ac tive Results Component Value Reference Range Notes Hemoglobin A1c Reviewed date:05/03/2024 08:45:50 AM Interpretation: Performing Lab: Notes/Report: Hemoglobin A1c 6.9 Glucose, finger stick Reviewed date:05/03/2024 08:38:37 AM Interpretation: Performing Lab: Notes/Report: Value 132 REASON FOR VISIT 3 months Medications Medication SIG (Take, Route, Frequency, Duration) Notes Start Date End Date Status metFORMIN HCl 500 MG TAKE 1 TABLET BY [facility] DAILY WITH MEALS Orally twice a day Active CeleBREX 200 MG 1 capsule Orally Onc e a day for 90 days 05/20/2016 Not-Taking Ambien 5 MG 1 tablet at bedtime Orally Once a day 08/22/2011 Not-Taking Ambien 5 MG 1 tablet at bedtime Orally Once a day for 90 days 07/04/2016 Not-Taking Trulicity 4.5 MG/0.5ML as directed Subcu taneous weekle for 90 days 02/11/2024 Active Aspirin Adult Low Dose 81 MG 1 tablet Orally Once a day for 30 day(s) 01/12/2018 Active Rosuvastatin Calcium 40 MG TAKE ONE TABLET BY MOUTH ONCE DAILY Active Valsartan-hydroCHLOROthi azide 80-12.5 MG TAKE ONE TABLET BY MOUTH EVERY DAY Orally Once a day for 90 days Active Ketoconazole 2 % 1 application to affected area Externally Once a day for 30 days 10/15/2018 Active Vital Signs Blood pressure systolic 132 mm Hg 05/03/20 24 Blood pressure diastolic 70 mm Hg 024 Height 67.50 in 05/03/2024 Weight 233 lbs 05/03/2024 BMI 35.95 kg/m2 05/03/2024 weight is down 3 pounds [facility] 02-11-24 Encounters Encounter Location Date Provider Diagnosis Rancho Lopez MD [address] [place] [address] [place] [phone] 05/03/2024 Rancho Lopez Type 2 diabetes mellitus without complication E11.9 Assessments Encounter Date Diagnosis (ICD Code) Assessment Notes Treatment Notes Treatment Clinical Notes Section Notes 05/03/2024 Type 2 diabetes mellitus without complication (ICD-10 - E11.9) patient verbalized understanding pf medication and change in dose Plan Of Treatment Medication Medication Name Sig Start Date Stop Date Notes metFORMIN HCl 500 MG TAKE 1 TABLET BY [facility] DAILY WITH MEALS Orally twice a day Trulicity 4.5 MG/0.5ML as directed Subcu taneous weekle for 90 days 02/11/2024 Treatment Notes Assessment Notes Type 2 diabetes mellitus wit hout complication patient verbalized understanding pf medication and change in dose Next Appt Details Follow Up: 6 Months, Reason: Provider Name:Rancho gurrola, 05/26/2025 10:15:00 AM, [address] [place] [address], Suite [facility], [place], [place], [phone], Provider Name:Rancho gurrola, 02/12/2026 07:45:00 AM, [address] [place] [address], Suite [facility], [place], [place], [phone], Provider Name:Rancho gurrola, 02/19/2026 09:30:00 AM, [address] [place] [address], [address], [place], [place], [phone], Progress Notes * Celestine JOYCE LDOB:[birth year] (74 yo M)Acc No.[id number]:05/03/2024 Progress Notes Patient: Celestine Young Provider: Ankita Lopez MD :1950 A ge:74 Y S ex:Male Date:05/03/2024 Address:[address] [place], [place] [phone] Subjective: * Chief Complaints: * 3 months * HPI: S ymptom(s): patient is a 74 yo male here for 3 month follow up of diabetes. * ROS: G eneral/Constitutional: Denies C hills. D enies F atigue. D enies F ever. D enies H eadache. E NT: Patient denies d ecreased sense of smell , any loss of taste , sore throat. D enies S ore throat. R espiratory: Denies C ough. D enies S hortness of breath at rest. D enies S hortness of breath with exertion. G astrointestinal: Denies D iarrhea. D enies N ausea. M usculoskeletal: Patient denies m uscle aches. P eripheral Vascular: Patient denies r ed and blue toes. * Medical History: * Surgical History: * Hospitalization/Major Diagno stic Procedure: * Medications: T akingAspirin Adult Low Dose [...] BY MOUTH EVERY DAY Orally Once a dayTrulicity 3 MG/0.5ML Solution Pen-injector as directed Subcutaneous weekleTaking Aspirin Adult Low Dose 81 MG Tablet [...] MOUTH EVERY DAY Orally Once a dayTaking Trulicity 3 MG/0.5ML Solution Pen- injector as directed Subcutaneous weekleNot-Taking/PRNCeleBREX 200 MG Capsule 1 capsule Orally Once [...] with the patient * Allergies: i vp project dye: SWELLINGPaxil: sexual dysfunctionLisinopril: coughyes[Allergies Verified] Objective: * Vitals: H t: 67.50, Wt:233, BMI:35.95, BP:132/70 weight is down 3 pounds since 02-11-24. * P ast Orders: L ab:Hemoglobin A1c (Order Date - 02/04/2024) (Collection Date - 02/04/2024) Result: [facility] 02/10 Value Reference Range Hemoglobin A1c % 8.8 H <6.0 - % Estimated Average Glucose 206 - mg/dL * Examination: G eneral Examination: GENERAL APPEARANCE: alert, well hydrated, in no distress . HEAD: normocephalic. HEART: no murmurs, rubs, gallops, regular rate and rhythm. LUNGS: no wheezes, rales, rhonchi, good air movement, clear to auscultation bilaterally. Assessment: * Assessment: 1. T ype 2 diabetes mellitus without complication - E11.9 (Primary) Plan: * Treatment: Value Reference Range H emoglobin A1c 6.9 * Kaylene Wren 4 08:45:49 AM EDT > ?LAB: Glucose, finger stick* Value Reference Range V alue 132 * Kaylene Wren 4 08:38:35 AM EDT > Notes: patient verbalized understanding pf medication and change in dose?? * Procedure Codes: 8 2947 ASSAY, GLUCOSE, BLOOD QUANT, Modifiers: QW 27474 GLYCATED HEMOGLOBIN TEST, Modifiers: QW * Follow Up: 6 Months * * Sign off status: Completed true * Provider: Ankita Lopez MD Date: Generated for Marie grider/Misael/Mariosmitting on: 12:21 PM EDT History and Physical Notes * HPI (History of Present Illness) Category Sub-Category Detail Notes Category Not es Symptom(s) patient is a 74 yo male here for 3 month follow up of diabetes Examination Category Sub-Category Detail Notes Category Not es General Examination GENERAL APPEARANCE: alert, w ell hydrated, in no distress HEAD: normocephalic HEART: no murmurs, rubs, ga llops, regular rate and rhythm LUNGS: no wheezes, rales, r honchi, good air movement, clear to auscultation bilaterally
--- OUTSIDE RECORDS SUMMARY | 2024-08-09 03:45 | XMS_ITS ---
Author Organization Rancho Lopez MD Address [address] [place], [place] [phone] Care Team Providers Care Transcriptionist Name Role Phone Rancho Lopez Primary Care Provider [phone] Results Component Value Reference Range Notes Liver Panel Reviewed date:08/09/2024 05:04:20 PM Interpretation: Performing Lab:[facility], [address] [place] [phone] Notes/Report: Bilirubin Total 0.7 0.0-1.0 mg/dL Bilirubin Direct 0.2 0.0-0.5 mg/dL Aspartate Amino Transferase 34 5-37 U/L Alanine Aminotransferase 32 0-40 U/L Total Protein 7.7 6.5-8.0 g/dL Albumin Level 4.4 3.5-5.0 g/dL Alkaline Phosphatase 71 39-117 U/L Glucose Fasting Reviewed date:08/09/2024 05:10:35 PM Interpretation: Performing Lab:[facility], [address] [place] [phone] Notes/Report: Glucose Fasting 121 60-99 mg/dL A fasting glucose from 100-125 mg/dl is considered impaired (pre-diabetes). Lipid Panel with Reflex Reviewed date:08/09/2024 05:10:43 PM Interpretation: Performing Lab:[facility], [address] [place] [phone] Notes/Report: Triglycerides 159 <150 mg/dL Desirable Triglyceride: less than 150 mg/dL Borderline High Triglyceride 150-199 mg/dL High Triglyceride: 200-499 mg/dL Very High Triglyceride: greater than or equal to 5OO mg/dL Cholesterol 115 <200 mg/dL Desirable Cholesterol: less than 200 mg/dL Borderline High Cholesterol: 200-239 mg/dL High Cholesterol: greater than 239 mg/dL LDL Cholesterol Calculated 51 <100 mg/dL Desirable LDL: less than 100 mg/dL Near Optimal/Above Optimal LDL: 110-129 mg/dL Borderline High LDL: 130-159 mg/dL High LDL: 160-189 mg/dL Very High LDL: greater than or equal to 190 mg/dL HDL Cholesterol 33 >40 mg/dL Desirable HDL: greater than 40 mg/dL Note: This HDL assay may give artificially low results in patients with liver disease. Hemoglobin A1c Reviewed date:08/09/2024 05:01:28 PM Interpretation: Performing Lab:[facility], [address] [place] [phone] Notes/Report: Hemoglobin A1c % 6.4 <6.0 % Hemoglobin A1C Reference Range Adults: 4.8 - 6.0 % Non diabetic: < 6.0 % Goal: < 7.0 % Additional Action Suggested: > 8.0 % Note: Hemoglobin A1c results are invalid for patients with abnormal amounts of HbF. Blood transfusions may impact the HbA1c concentration in the patient sample. Estimated Average Glucose 137 eAG = Estimated average glucose which is %A1C expressed as average glucose, using the formula of the Q7J-Jesvtct Average Glucose study (ADAG), Diabetes Care, Vol.31,#8, Feb. 2007 REASON FOR VISIT fasting lipids Immunizations Vaccine Route Administration Date Status Comme nts Influenza High Dose IM Intramuscular 08/09/2024 Administer ed Encounters Encounter Location Date Provider Diagnosis Rancho Lopez MD [address] [place], [place] [phone] 08/09/2024 Rancho Lopez Type 2 diabetes shaquille itus without complication E11.9 ; Encounter for immunization Z23 and Pure hypercholesterolemia E78.00 Assessments Encounter Date Diagnosis (ICD Code) Assessment Notes Treatment Notes Treatment Clinical Notes Section Notes 08/09/2024 Type 2 diabetes shaquille itus without complication (ICD-10 - E11.9) 08/09/2024 Encounter for immunization (ICD-10 - Z23) 08/09/2024 Pure hypercholesterolemia (ICD-10 - E78.00) Plan Of Treatment Next Appt Details Provider Name:Rancho Oleary ier, 05/26/2025 10:15:00 AM, [address] [facility], Suite [facility], [place], [place], [phone], Provider Name:Rancho Oleary ier, 02/12/2026 07:45:00 AM, [address], [address], [place], [place], [phone], Provider Name:Rancho Oleary ier, 02/19/2026 09:30:00 AM, [address] [place] [address], Suite [facility], [place], [place], [phone], Progress Notes * Celestine JOYCE LDOB:[birth year] (75 yo M)Acc No.[id number]:08/09/2024 Progress Note Patient: Celestine GASTON Provider: Ankita Lopez MD :1950 A ge:74 Y S ex:Male Date:08/09/2024 Address:[address] [place] [address], [id number] Subjective: * Chief Complaints: * 1 . Fasting lipids. * Medical History: Objective: * Vitals: Assessment: * Assessment: 1. E ncounter for immunization - Z23 (Primary) 2 . T ype 2 diabetes mellitus without complication - E11.9 3 . P ure hypercholesterolemia - E78.00 ? Plan: * Treatment: 2. P ure hypercholesterolemia L AB: Liver Panel (Collection Date & Time - 08/09/2024 07:45 AM) L AB: Glucose Fasting (Collection Date & Time - 08/09/2024 07:45 AM) L AB: Lipid Panel with Reflex (Collection Date & Time - 08/09/2024 07:45 AM) L AB: Hemoglobin A1c (Collection Date & Time - 08/09/2024 07:45 AM) * Immunizations: Influenza High Dose : 0.5 mL (Dose No:1) (Route: Intramuscular) given by Kaylene Wren , Office Staff on Left Deltoid * Procedure Codes: 9 0662 FLU VACC PRSV FREE INC ANTIG, 92099 IMMUNIZATION ADMIN, 52839 VENIPUNCT, ROUTINE* * * The named appointment provid er may or may not be the originator of this progress note, and it is not deemed complete until electronically signed by the appointment provider. Sign off status: Pending * Provider: Ankita Lopez MD Date: 0 08/09/2024 Generated for Marie grider/Misael/Arnolditting on: 12:21 PM EDT
--- OUTSIDE RECORDS SUMMARY | 2024-08-16 04:30 | XMS_ITS ---
Author Organization Rancho Lopez MD Address [address] [place] [phone] Care Team Providers Care Wraparound Facilitator Name Role Phone Rancho Lopez Primary Care Provider [phone] Allergies Allergen (clinical drug ingredient) Drug/Non Drug Allergy documented on EMR Reaction Allergy Type Onset Date Status paroxetine Paxil sexual dysfunction Drug Allergy Active lisinopril Lisinopril cough Drug Allergy Activ e ivp dye (uncoded) SWELLING Allergy Ac tive REASON FOR VISIT 6 month Medications Medication SIG (Take, Route, Frequency, Duration) Notes Start Date End Date Status metFORMIN HCl 500 MG TAKE ONE TABLET BY MOUTH TWO TIMES A DAY WITH MEALS Active Rosuvastatin Calcium 40 MG TAKE ONE TABLET BY MOUTH EVERY DAY Active CeleBREX 200 MG 1 capsule Orally Onc e a day for 90 days 05/20/2016 Not-Taking Ambien 5 MG 1 tablet at bedtime Orally Once a day 08/22/2011 Not-Taking Ambien 5 MG 1 tablet at bedtime Orally Once a day for 90 days 07/04/2016 Not-Taking Trulicity 3 MG/0.5ML as directed Subcuta neous weekle for 30 days 02/11/2024 Active Ketoconazole 2 % 1 application to affected area Externally Once a day for 30 days 10/15/2018 Active Aspirin Adult Low Dose 81 MG 1 tablet Orally Once a day for 30 day(s) 01/12/2018 Active Valsartan-hydroCHLOROthi azide 80-12.5 MG TAKE ONE TABLET BY MOUTH EVERY DAY Orally Once a day Active Vital Signs Blood pressure systolic 142 mm Hg 08/16/19 25 Blood pressure diastolic 80 mm Hg 025 Height 67.50 in 08/16/2024 Weight 229 lbs 08/16/2024 BMI 35.33 kg/m2 08/16/2024 weight is down 4 pounds [facility] e 05-03-24 Encounters Encounter Location Date Provider Diagnosis Rancho Lopez MD [address] [place], [place] [phone] 08/16/2024 Rancho Lopez Type 2 diabetes shaquille itus without complication E11.9 ; Pure hypercholesterolemia E78.00 and Essential hypertension I10 Assessments Encounter Date Diagnosis (ICD Code) Assessment Notes Treatment Notes Treatment Clinical Notes Section Notes 08/16/2024 Type 2 diabetes shaquille itus without complication (ICD-10 - E11.9) having a lot of heartburn from the trulicity so mando try a lower dose. is doing well with weight loss 08/16/2024 Pure hypercholesterolemia (ICD-10 - E78.00) stable, will continue current regiment 08/16/2024 Essential hypertensi on (ICD-10 - I10) running a bit high today, will continue to monitor and will continue current regiment Plan Of Treatment Medication Medication Name Sig Start Date Stop Date Notes metFORMIN HCl 500 MG TAKE ONE TABLET BY MOUTH TWO TIMES A DAY WITH MEALS Rosuvastatin Calcium 40 MG TAKE ONE TABL ET BY MOUTH EVERY DAY Trulicity 3 MG/0.5ML as directed [facility] 02/11/2024 Valsartan-hydroCHLOROthiazid e 80-12.5 MG TAKE ONE TABLET BY MOUTH EVERY DAY Orally Once a day Treatment Notes Assessment Notes Type 2 diabetes mellitus without complic ation having a lot of heartburn from the trulicity so mando try a lower dose. is doing well with weight loss Pure hypercholesterolemia stable, will c ontinue current regiment Essential hypertension running a bit hig h today, will continue to monitor and will continue current regiment Next Appt Details Provider Name:Rancho gurrola, 05/26/2025 10:15:00 AM, [address], [address], [place], [place], [phone], Provider Name:Rancho Oleary ier, 02/12/2026 07:45:00 AM, [address], [address], [place], [phone], Provider Name:Rancho Oleayr ier, 02/19/2026 09:30:00 AM, [address], [address], [place], [phone], Progress Notes * Celestine JOYCE LDOB:[birth year] (74 yo M)Acc No.[id number]:08/16/2024 Progress Notes Patient: Celestine GASTON Provider: Ankita Lopez MD :1950 A ge:74 Y S ex:Male Date:08/16/2024 Address:[address] [place] [address], [place], [id number] Subjective: * Chief Complaints: * 6 month * HPI: S ymptom(s): patient is a 74 yo male here for 6 month follow up visit. * ROS: G eneral/Constitutional: Denies C hills. D enies F atigue. D enies F ever. D enies H eadache. E NT: Patient denies d ecreased sense of smell , any loss of taste , sore throat. D enies S ore throat. E ndocrine: Denies D ifficulty sleeping. D enies D izziness.?Denies E xcessive sweating. D enies E xcessive thirst. A dmits F requent urination. R espiratory: Denies C ough. D enies [...] Delayed Release 1 tablet Orally Once a day Ketoconazole 2 % Cream 1 application to affected area Externally Once a day Valsartan-hydroCHLOROthiazide 80-12.5 MG Tablet TAKE ONE TABLET BY MOUTH EVERY DAY Orally Once a day Trulicity 4.5 MG/0.5ML Solution Pen-injector as directed Subcutaneous weekle Rosuvastatin Calcium 40 MG Tablet TAKE ONE TABLET BY MOUTH EVERY DAY metFORMIN HCl 500 MG Tablet TAKE ONE TABLET BY MOUTH TWO TIMES A DAY WITH MEALS Taking Aspirin Adult Low Dose 81 MG Tablet Delayed Release 1 tablet Orally Once a day Taking Ketoconazole 2 % Cream 1 application to affected area Externally Once a day Taking Valsartan-hydroCHLOROthiazide 80-12.5 MG Tablet TAKE ONE TABLET BY MOUTH EVERY DAY Orally Once a day Taking Trulicity 4.5 MG/0.5ML Solution Pen-injector as directed Subcutaneous weekle Taking Rosuvastatin Calcium 40 MG Tablet TAKE ONE TABLET BY MOUTH EVERY DAY Taking metFORMIN HCl 500 MG Tablet TAKE ONE TABLET BY MOUTH TWO TIMES A DAY WITH MEALS Not-Taking/PRNCeleBREX 200 MG Capsule 1 capsule Orally Once a day Ambien 5 MG Tablet 1 tablet at bedtime Orally Once a day Ambien 5 MG Tablet 1 tablet at bedtime Orally Once a day Medication List reviewed and reconciled with the patientNot-Taking/PRN CeleBREX 200 MG Capsule 1 capsule Orally Once a day Not-Taking/PRN Ambien 5 MG Tablet 1 tablet at bedtime Orally Once a day Not-Taking/PRN Ambien 5 MG Tablet 1 tablet at bedtime Orally Once a day Medication List reviewed and reconciled with the patient * Allergies: i vp software engineering dye: SWELLINGPaxil: sexual dysfunctionLisinopril: coughyes[Allergies Verified] Objective: * Vitals: H t: 67.50, Wt:229, BMI:35.33, BP:142/80. weight is down 4 pounds since 05-03-24. * P ast Orders: L ab:Liver Panel (Order Date - 08/09/2024) (Collection Date & Time - 08/09/2024 07:45 AM) Value Reference Range Bilirubin Total 0.7 0.0-1.0 - mg/dL Bilirubin Direct 0.2 0.0-0.5 - mg/dL Aspartate Amino Transferase 34 5-37 - U/L Alanine Aminotransferase 32 0-40 - U/L Total Protein 7.7 6.5-8.0 - g/dL Albumin Level 4.4 3.5-5.0 - g/dL Alkaline Phosphatase 71 39-117 - U/L L ab:Glucose Fasting (Order Date - 08/09/2024) (Collection Date & Time - 08/09/2024 07:45 AM) Value Reference Range Glucose Fasting 121 H 60-99 - mg/dL L ab:Lipid Panel with Reflex (Order Date - 08/09/2024) (Collection Date & Time - 08/09/2024 07:45 AM) Value Reference Range Triglycerides 159 H <150 - mg/dL Cholesterol 115 <200 - mg/dL LDL Cholesterol Calculated 51 <100 - mg/dL HDL Cholesterol 33 L >40 - mg/dL L ab:Hemoglobin A1c (Order Date - 08/09/2024) (Collection Date & Time - 08/09/2024 07:45 AM) Value Reference Range Hemoglobin A1c % 6.4 H <6.0 - % Estimated Average Glucose 137 - mg/dL * Examination: G eneral Examination: GENERAL APPEARANCE: a lert, well hydrated, in no distress.? SKIN: g ood turgor. HEART: n o murmurs, rubs, gallops , regular rate and rhythm. LUNGS: n o wheezes, rales, rhonchi , good air movement , clear to auscultation bilaterally. Assessment: * Assessment: 1. T ype 2 diabetes mellitus without complication - E11.9 (Primary) 2 . P ure hypercholesterolemia - E78.00 3 . E ssential hypertension - I10 ? Plan: * Treatment: 2. P ure hypercholesterolemia Continue Rosuvastatin Calcium Tablet, 40 MG, TAKE ONE TABLET BY MOUTH EVERY DAY. Notes: stable, will continue current regiment 3. E ssential hypertension Continue Valsartan-hydroCHLOROthiazide Tablet, 80-12.5 MG, TAKE ONE TABLET BY MOUTH EVERY DAY, Orally, Once a day. Notes: running a bit high today, will continue to monitor and will continue current regiment ? * Procedure Codes: * * Sign off status: Completed true * Provider: Ankita Lopez MD Date: 0 08/16/2024 Generated for Marie grider/Misael/eTkinjalsmitting on: 1 12:19 PM EDT History and Physical Notes * HPI (History of Present Illness) Category Sub-Category Detail Notes Category Not es Symptom(s) patient is a 74 yo male here for 6 month follow up visit Examination Category Sub-Category Detail Notes Category Not es General Examination GENERAL APPEARANCE: alert, w ell hydrated, in no distress HEART: no murmurs, rubs, ga llops , regular rate and rhythm LUNGS: no wheezes, rales, r honchi , good air movement , clear to auscultation bilaterally SKIN: good turgor
--- OUTSIDE RECORDS SUMMARY | 2025-01-11 09:57 | XMS_ITS ---
Author Organization Rancho Lopez MD Address [address] [facility] [address] [place] [phone] Care Team Providers Care Beer Cooler Name Role Rancho Flanagan Primary Care Provider REASON FOR VISIT Quality Metrics Encounters Encounter Location Date Provider Diagnosis Rancho Lopez MD [address] [facility] [address] [place] [phone] 01/11/2025 Rancho Lopez Plan Of Treatment Next Appt Details Provider Name:Rancho gurrola, 05/26/2025 10:15:00 AM, [address] [place] [address], [address], [phone], Provider Name:Rancho gurrola, 02/12/2026 07:45:00 AM, [address] [place] [address], [address], [phone], Provider Name:Rancho gurrola, 02/19/2026 09:30:00 AM, [address] [place] [address], [address], [phone], Progress Notes * Celestine JOYCE LDOB:[birth year] (75 yo M)Acc No.[id number]:01/11/2025 Patient: Celestine GASTON :1950 A ge:75 Y S ex:Male Address:[address] [place] [address], [place] [address] * true * Date: Generated for Marie grider/Misael/Erica on: 12:20 PM EDT
--- OUTSIDE RECORDS SUMMARY | 2025-02-09 03:00 | XMS_ITS ---
Author Organization Rancho Lopez MD Address [address] [place], [place] [phone] Care Team Providers Care Certified Green Building Engineer Name Role Phone Rancho Lopez Primary Care Provider Results Component Value Reference Range Notes Complete Blood Count Auto Di ff Reviewed date:02/10/2025 04:21:22 PM Interpretation: Performing Lab:[facility], [address] [place] [phone] Notes/Report: White Blood Count 7.7 4.8-10.8 X10*3/uL Red Blood Count 4.98 4.60-5.80 X10*6/uL Hemoglobin 15.4 14.0-18.0 g/dl Hematocrit 45.2 42.0-52.0 % Mean Corpuscular Volume 90.8 80.0-98.0 fL Mean Corpuscular Hemoglobin 30.9 27.0-33.0 pg Mean Corpuscular HGB Conc 34.1 31.0-36.0 g/dl Red Cell Distribution Width 13.6 11.0-16.0 % Platelet Count 220 160-400 X10*3/uL Mean Platelet Volume 9.8 9.4-12.4 fL Neutrophils Percent Auto 44.9 45-73 % Imm Gran Pct Auto 0.3 0.0-0.4 % Lymphocytes Percent Auto 40.9 20-40 % Monocytes Percent Auto 8.8 2-11 % Eosinophils Percent Auto 4.3 0-4 % Basophils Percent Auto 0.8 0-2 % NRBC Pct Auto 0.0 0.0-0.2 /100WBC Neutrophils Absolute Auto 3.5 2.0-8.3 x10*3/u L Imm Gran Abs Auto 0.02 0.00-0.03 X10*3/uL Lymphocytes Absolute Auto 3.2 1.2-4.9 X10*3/u L Monocytes Absolute Auto 0.7 0.1-1.2 X10*3/uL Eosinophils Absolute Auto 0.3 0.0-0.4 X10*3/u L Basophils Absolute Auto 0.1 0.0-0.2 X10*3/uL NRBC Abs Auto 0.000 0.0-0.012 X10*3/uL Comprehensive [place]. Panel Fa st Reviewed date:02/10/2025 04:20:55 PM Interpretation: Performing Lab:[facility], [address] [place] [phone] Notes/Report: Sodium 138 135-145 mmol/L Potassium 4.5 3.3-5.1 mmol/L Chloride 103 96-108 mmol/L Carbon Dioxide 27 22-29 mmol/L Anion Gap 13 12-20 Blood Urea Nitrogen 16 9-16 mg/dL Creatinine 1.02 0.5-1.4 mg/dL Estimated Glomerular Filt Rate > 60 Chronic Kidney Disease: Estimated GFR < 60 mL/min/1.73m2 Severe Kidney Disease: Estimated GFR < 15 mL/min/1.73m2 Glucose Fasting 113 60-99 mg/dL A fasting glucose from 100-125 mg/dl is considered impaired (pre-diabetes). Calcium 9.4 8.4-10.2 mg/dL Bilirubin Total 0.7 0.0-1.0 mg/dL Aspartate Amino Transferase 45 5-37 U/L Alanine Aminotransferase 58 0-40 U/L Total Protein 7.5 6.5-8.0 g/dL Albumin Level 4.5 3.5-5.0 g/dL Alkaline Phosphatase 86 39-117 U/L Lipid Panel Reviewed date:02/16/2025 11:49:56 AM Interpretation:ZHEN 02/16 Performing Lab:[facility], [address] [place] [phone] Notes/Report: Triglycerides 222 <150 mg/dL Desirable Triglyceride: less than 150 mg/dL Borderline High Triglyceride 150-199 mg/dL High Triglyceride: 200-499 mg/dL Very High Triglyceride: greater than or equal to 5OO mg/dL Cholesterol 232 <200 mg/dL Desirable Cholesterol: less than 200 mg/dL Borderline High Cholesterol: 200-239 mg/dL High Cholesterol: greater than 239 mg/dL LDL Cholesterol Calculated 151 <100 mg/dL Desirable LDL: less than 100 mg/dL Near Optimal/Above Optimal LDL: 110-129 mg/dL Borderline High LDL: 130-159 mg/dL High LDL: 160-189 mg/dL Very High LDL: greater than or equal to 190 mg/dL HDL Cholesterol 37 >40 mg/dL Desirable HDL: greater than 40 mg/dL Note: This HDL assay may give artificially low results in patients with liver disease. PSA,Total (Free>4and<10) Reviewed date:02/09/2025 12:42:26 PM Interpretation: Performing Lab:[facility], [address] [place] [phone] Notes/Report: PSA,Total (Free>4and<10) 2.55 0.00-4.00 ng/mL A Free PSA was not performed: The percentage of Free PSA can be used to enhance the differentiation of prostate cancer from benign prostatic disease in subjects whose PSA levels are between 4.0 and 10.0 ng/mL. For subjects whose PSA levels are below 4.0 or above 10.0 ng/mL, the risk of prostate cancer is determined on the basis of the PSA alone. Therefore the % Free PSA is recommended only for those subjects whose PSA levels are between 4.0 and 10.0 ng/mL. PSA methodology: Castañeda Alinity i Chemiluminescent Microparticle Immunoassay (CMIA) Microalbumin, Random Reviewed date:02/09/2025 12:51:42 PM Interpretation: Performing Lab:[facility], [address] [place] [phone] Notes/Report: Creatinine Urine 155.31 Microalbumin Urine 25.0 Microalbum/Creatinine Ratio Ur 16.0 <30 ug/mg cr Albumin/Creatinine Ratio Reference Ranges: Normal: < 30 ug/mg creatinine Microalbuminuria: 30 - 300 ug/mg creatinine Clinical Albuminuria: > 300 ug/mg creatinine Hemoglobin A1c Reviewed date:02/09/2025 12:42:17 PM Interpretation: Performing Lab:[address] [phone] Notes/Report: Hemoglobin A1c % 6.7 <6.0 % Hemoglobin A1C Reference Range Adults: 4.8 - 6.0 % Non diabetic: < 6.0 % Goal: < 7.0 % Additional Action Suggested: > 8.0 % Note: Hemoglobin A1c results are invalid for patients with abnormal amounts of HbF. Blood transfusions may impact the HbA1c concentration in the patient sample. Estimated Average Glucose 146 eAG = Estimated average glucose which is %A1C expressed as average glucose, using the formula of the O6C-Musewyi Average Glucose study (ADAG), Diabetes Care, Vol.31,#8, Feb. 2007 UA ClnCatch+Micro w/rflx Cul t Reviewed date:02/10/2025 04:16:31 PM Interpretation: Performing Lab:[facility], [address] [place] [phone] Notes/Report: [id number] Urine, Clean Catch Color Urine Yellow Appearance Urine Clear PH 5.0 5.0-9.0 Glucose Urine UA Negative Negative mg/dL Urine Blood Negative Negative Specific [place] - Urine 1.020 1.005-1.025 Urine Protein Negative Neg-Trace mg/dL Urine Ketones Negative Negative mg/dL Nitrite Urine Negative Negative Leukocyte Esterase Urine Negative Negative RBC Urine 0-2 0-2 /HPF WBC Urine 0-5 0-5 /HPF Squamous Epithelial Cell Urine 0-2 0-2 /HPF Bacteria Urine None Seen None Seen Hyaline Casts Urine 0-2 0-2 /LPF REASON FOR VISIT yearly fasting labs Encounters Encounter Location Date Provider Diagnosis Rancho Lopez MD [address] [place], [place] [phone] 02/09/2025 Rancho Lopez Blood tests for rout [...] on (ICD-10 - I10) Plan Of Treatment Next Appt Details Provider Name:Rancho Oleary ier, 05/26/2025 10:15:00 AM, [address], [address], [place], [place], [phone], Provider Name:Rancho Oleary ier, 02/12/2026 07:45:00 AM, [address], [address], [place], [place], [phone], Provider Name:Rancho Oleary ier, 02/19/2026 09:30:00 AM, [address] [place] [address], [facility], [place], [place], [phone], Progress Notes * Celestine JOYCE LDOB:[birth year] (75 yo M)Acc No.[id number]:02/09/2025 Progress Note Patient: Celestine GASTON Provider: Ankita Lopez MD :1950 A ge:75 Y S ex:Male Date:02/09/2025 Address:[address] [place], [place] [phone] Subjective: * Chief Complaints: * 1 . [...] L AB: Complete Blood Count Auto Diff (Collection Date & Time - 02/09/2025 07:00 AM) L AB: Comprehensive [place]. Panel Fast (Collection Date & Time - 02/09/2025 07:00 AM) L AB: Lipid Panel (Collection Date & Time - 02/09/2025 07:00 AM) L AB: PSA,Total (Free>4and<10) (Collection Date & Time - 02/09/2025 07:00 AM) L AB: Microalbumin, Random (Collection Date & Time - 02/09/2025 07:00 AM) L AB: Hemoglobin A1c (Collection Date & Time - 02/09/2025 07:00 AM) L AB: UA ClnCatch+Micro w/rflx Cult (Collection Date & Time - 02/09/2025 07:00 AM) 3. P ure hypercholesterolemia L AB: Complete Blood Count Auto Diff (Collection Date & Time - 02/09/2025 07:00 AM) L AB: Comprehensive [place]. Panel Fast (Collection Date & Time - 02/09/2025 07:00 AM) L AB: Lipid Panel (Collection Date & Time - 02/09/2025 07:00 AM) L AB: PSA,Total (Free>4and<10) (Collection Date & Time - 02/09/2025 07:00 AM) L AB: Microalbumin, Random (Collection Date & Time - 02/09/2025 07:00 AM) L AB: Hemoglobin A1c (Collection Date & Time - 02/09/2025 07:00 AM) L AB: UA ClnCatch+Micro w/rflx Cult (Collection Date & Time - 02/09/2025 07:00 AM) 4. E ssential hypertension L AB: Complete Blood Count Auto Diff (Collection Date & Time - 02/09/2025 07:00 AM) L AB: Comprehensive [place]. Panel Fast (Collection Date & Time - 02/09/2025 07:00 AM) L AB: Lipid Panel (Collection Date & Time - 02/09/2025 07:00 AM) L AB: PSA,Total (Free>4and<10) (Collection Date & Time - 02/09/2025 07:00 AM) L AB: Microalbumin, Random (Collection Date & Time - 02/09/2025 07:00 AM) L AB: Hemoglobin A1c (Collection Date & Time - 02/09/2025 07:00 AM) L AB: UA ClnCatch+Micro w/rflx Cult (Collection Date & Time - 02/09/2025 07:00 AM) * Procedure Codes: 3 6415 VENIPUNCT, ROUTINE* * * The named appointment provid er may or may not be the originator of this progress note, and it is not deemed complete until electronically signed by the appointment provider. Sign off status: Pending * Provider: Ankita Lopez MD Date: 0 02/09/2025 Generated for Marie grider/Misael/Erica on: 1 12:19 PM EDT
--- OUTSIDE RECORDS SUMMARY | 2025-02-16 04:00 | XMS_ITS ---
Author Organization Rancho Lopez MD Address [address] [place] [phone] Care Team Providers Care Medical Records Field Technician Name Role Phone Rancho Lopez Primary Care Provider Allergies Allergen (clinical drug ingredient) Drug/Non Drug Allergy documented on EMR Reaction Allergy Type Onset Date Status paroxetine Paxil sexual dysfunction Drug Allergy Active lisinopril Lisinopril cough Drug Allergy Activ e ivp dye (uncoded) SWELLING Allergy Ac tive REASON FOR VISIT annual visit, Overdue for Colorectal Cancer Screening, Due for Diabetic Eye Exam, CBACK LIPIDS, c/klever cramps Medications Medication SIG (Take, Route, Frequency, Duration) Notes Start Date End Date Status CeleBREX 200 MG 1 capsule Orally Onc e a day for 90 days 05/20/2016 Not-Taking Ambien 5 MG 1 tablet at bedtime Orally Once a day for 90 days 07/04/2016 Not-Taking Ambien 5 MG 1 tablet at bedtime Orally Once a day 08/22/2011 Not-Taking Valsartan-hydroCHLOROthia zide 80-12.5 MG TAKE 1 TABLET BY MOUTH ONCE DAILY. for 90 Active Trulicity 3 MG/0.5ML USE DIRECTED UND ER THE SKIN ONCE WEEKLY for 28 Active Rosuvastatin Calcium 40 MG TAKE ONE TABLET BY MOUTH EVERY DAY Active metFORMIN HCl 500 MG TAKE ONE TABLET BY MOUTH TWO TIMES A DAY WITH MEALS Active Aspirin Adult Low Dose 81 MG 1 tablet Orally Once a day for 30 day(s) 01/12/2018 Active Ketoconazole 2 % 1 application to affected area Externally Once a day for 30 days 10/15/2018 Active Social History Tobacco Use: Social History [...] ast year? No Points 0 Interpretation Negative Vital Signs Blood pressure systolic 118 mm Hg 02/17/20 25 Blood pressure diastolic 88 mm Hg 025 Height 67.50 in 02/16/2025 Weight 235 lbs 02/16/2025 BMI 36.26 kg/m2 02/16/2025 weight is up 6 pounds since 08-16-24 Encounters Encounter Location Date Provider Diagnosis Rancho Lopez MD [address] [place] [address] [place] [phone] 02/16/2025 Rancho Lopez Annual physical exam Z00.00 ; Type 2 diabetes mellitus without complication E11.9 ; Essential hypertension I10 ; Elevated LFTs R79.89 ; Pure hypercholesterolemia E78.00 and DESMOND (obstructive sleep apnea) G47.33 Assessments Encounter Date Diagnosis (ICD Code) Assessment Notes Treatment Notes Treatment Clinical Notes Section Notes 02/16/2025 Annual physical exam (ICD-10 - Z00.00) Labs reviewed and discussed with patient 02/16/2025 Type 2 diabetes mellitus without complication (ICD-10 - E11.9) doing a little worse with weight gain. 02/16/2025 Essential hypertensi on (ICD-10 - I10) doing well 02/16/2025 Elevated LFTs (ICD-1 0 - R79.89) 02/16/2025 Pure hypercholesterolemia (ICD-10 - E78.00) feel that his statins cause his cramps so will try going without statins and if no cramps will send to corporate development manager for injectable cholesterol 02/16/2025 DESMOND (obstructive sle ep apnea) (ICD-10 - G47.33) never had a study but refuses to use sleep machine Plan Of Treatment Treatment Notes Assessment Notes Annual physical exam Labs reviewed and d iscussed with patient Type 2 diabetes mellitus without complic ation doing a little worse with weight gain. Essential hypertension doing well Pure hypercholesterolemia feel that his statins cause his cramps so will try going without statins and if no cramps will send to corporate development manager for injectable cholesterol DESMOND (obstructive sleep apnea) never had a study but refuses to use sleep machine Pending Test Test Name Order Date Liver Panel 02/16/2025 Next Appt Details Follow Up: 3 Months, Reason: Provider Name:Rancho gurrola, 05/26/2025 10:15:00 AM, [address] [place] [address], [address] [place] [address], [phone], Provider Name:Rancho gurrola, 02/12/2026 07:45:00 AM, [address] [place] [address], [address], [phone], Provider Name:Rancho gurrola, 02/19/2026 09:30:00 AM, [address] [place] [address], Suite [facility], [place], [place], [phone], Progress Notes * Celestine JOYCE LDOB:[birth year] (75 yo M)Acc No.[id number]:02/16/2025 Progress Notes Patient: Celestine GASTON Provider: Ankita Lopez MD :1950 A ge:75 Y S ex:Male Date:02/16/2025 Address:[address] [place] [address], [place], [id number] Subjective: * Chief Complaints: * A nnual visitOverdue for Colorectal Cancer ScreeningDue for Diabetic Eye ExamCBACK LIPIDSC/o leg cramps * HPI: D epression Screening: PHQ-9 L [...] N one. S ymptom(s): patient is a 75 yo male here for annual visitn with review of recent labs and follow up of chronic issues g ot leg cramps come after any activity. * ROS: G eneral/Constitutional: Change in appetite d enies. C hills d enies. F ever d enies. O phthalmologic: Blurred vision d enies. D ischarge d enies. P ain d enies. E NT: Decreased hearing d enies. S ore throat d enies.?Swollen glands d enies. E ndocrine: Cold intolerance [...] F requent urination d enies. M usculoskeletal: Painful joints d enies. W eakness d enies. ? S kin: Dry skin d enies. I [...] than 4 cups per day. Children: yes. Community involvements: no. Exercise: yes, yardwork hike fishing. Home smoke detector use: yes. Housing: owning. Living with: spouse. Marital status: . Occupation: retired. Pets: cats:1. Travel outside of the [place]: no. * Medications: T akingAspirin Adult Low Dose 81 MG Tablet Delayed Release 1 tablet Orally Once a day Ketoconazole 2 % Cream 1 application to affected area Externally Once a day Rosuvastatin Calcium 40 MG Tablet TAKE ONE TABLET BY MOUTH EVERY DAY metFORMIN HCl 500 MG Tablet TAKE ONE TABLET BY MOUTH TWO TIMES A DAY WITH MEALS Valsartan-hydroCHLOROthiazide 80-12.5 MG Tablet TAKE 1 TABLET BY MOUTH ONCE DAILY. Trulicity 3 MG/0.5ML Solution Auto-injector USE DIRECTED UNDER THE SKIN ONCE WEEKLY Taking Aspirin Adult Low Dose 81 MG Tablet Delayed Release 1 tablet Orally Once a day Taking Ketoconazole 2 % Cream 1 application to affected area Externally Once a day Taking Rosuvastatin Calcium 40 MG Tablet TAKE ONE TABLET BY MOUTH EVERY DAY Taking metFORMIN HCl 500 MG Tablet TAKE ONE TABLET BY MOUTH TWO TIMES A DAY WITH MEALS Taking Valsartan-hydroCHLOROthiazide 80-12.5 MG Tablet TAKE 1 TABLET BY MOUTH ONCE DAILY. Taking Trulicity 3 MG/0.5ML Solution Auto-injector USE DIRECTED UNDER THE SKIN ONCE WEEKLY Not-Taking/PRNCeleBREX 200 MG Capsule 1 capsule Orally [...] Verified] Objective: * Vitals: H t: 67.50, Wt: 235, BMI:36.26, BP:118/88, Wt-k.6. weight is up 6 pounds since 08-16-24. * P ast Orders: L ab:PSA,Total (Free>4and<10) (Order Date - 02/09/2025) (Collection Date & Time - 02/09/2025 07:00 AM) Value Reference Range PSA,Total (Free>4and<10) 2.55 0.00-4.00 - ng/ mL L ab:Microalbumin, Random (Order Date - 02/09/2025) (Collection Date & Time - 02/09/2025 07:00 AM) Value Reference Range Creatinine Urine 155.31 - mg/dL Microalbumin Urine 25.0 - mg/L Microalbum Creatinine Ratio Ur 16.0 <30 - ug/ mg cr L ab:Hemoglobin A1c (Order Date - 02/09/2025) (Collection Date & Time - 02/09/2025 07:00 AM) Value Reference Range Hemoglobin A1c % 6.7 H <6.0 - % Estimated Average Glucose 146 - mg/dL L ab:UA ClnCatch+Micro w/rflx Cult (Order Date - 02/09/2025) (Collection Date & Time - 02/09/2025 07:00 AM) Value Reference Range Color Urine Yellow - Appearance Urine Clear - PH 5.0 5.0-9.0 - Glucose Urine UA Negative Negative - mg/dL Urine Blood Negative Negative - Specific [place] - Urine 1.020 1.005-1.025 - Urine Protein Negative Neg-Trace - mg/dL Urine Ketones Negative Negative [...] Blood Count Auto Diff (Order Date - 02/09/2025) (Collection Date & Time - 02/09/2025 07:00 AM) Value Reference Range White Blood Count 7.7 4.8-10.8 - X10*3/uL Red Blood Count 4.98 4.60-5.80 - X10*6/uL Hemoglobin 15.4 14.0-18.0 - g/dl Hematocrit 45.2 42.0-52.0 - % Mean Corpuscular Volume 90.8 80.0-98.0 - fL Mean Corpuscular Hemoglobin 30.9 27.0-33.0 - pg Mean Corpuscular HGB Conc 34.1 31.0-36.0 - g/ dl Red Cell Distribution Width 13.6 11.0-16.0 - % Platelet Count 220 160-400 - X10*3/uL Mean Platelet Volume 9.8 9.4-12.4 - fL Neutrophils Percent Auto 44.9 L 45-73 - % Imm Gran Pct Auto 0.3 0.0-0.4 - % Lymphocytes Percent Auto 40.9 H 20-40 - % Monocytes Percent Auto 8.8 2-11 - % Eosinophils Percent Auto 4.3 H 0-4 - % Basophils Percent Auto 0.8 0-2 - % NRBC Pct Auto 0.0 0.0-0.2 - /100WBC Neutrophils Absolute Auto 3.5 2.0-8.3 - x10* 3/uL Imm Gran Abs Auto 0.02 0.00-0.03 - X10*3/uL Lymphocytes Absolute Auto 3.2 1.2-4.9 - X10* 3/uL Monocytes Absolute Auto 0.7 0.1-1.2 - X10*3/ uL Eosinophils Absolute Auto 0.3 0.0-0.4 - X10* 3/uL Basophils Absolute Auto 0.1 0.0-0.2 - X10*3/ uL NRBC Abs Auto 0.000 0.0-0.012 - X10*3/uL L ab:Comprehensive Ewing. Panel Fast (Order Date - 02/09/2025) (Collection Date & Time - 02/09/2025 07:00 AM) Value Reference Range Sodium 138 135-145 - mmol/L Bilirubin Total 0.7 0.0-1.0 - mg/dL Aspartate Amino Transferase 45 H 5-37 - U/L Alanine Aminotransferase 58 H 0-40 - U/L Total Protein 7.5 6.5-8.0 - g/dL Albumin Level 4.5 3.5-5.0 - g/dL Alkaline Phosphatase 86 39-117 - U/L Potassium 4.5 3.3-5.1 - mmol/L Chloride 103 96-108 - mmol/L Carbon Dioxide 27 22-29 - mmol/L Anion Gap 13 12-20 - Blood Urea Nitrogen 16 9-16 - mg/dL Creatinine 1.02 0.5-1.4 - mg/dL Estimated Glomerular Filt Rate > 60 - Glucose Fasting 113 H 60-99 - mg/dL Calcium 9.4 8.4-10.2 - mg/dL * Examination: G eneral Examination: [...] prostate normal, stool guaiac negative. MALE GENITOURINARY: u ncircumcised, testes descended bilaterally, no testicular mass. EXTREMITIES: n o clubbing, cyanosis, or edema. NEUROLOGIC: n onfocal, motor strength normal upper and lower extremities, sensory exam intact. FOOT EXAM: . Assessment: * Assessment: 1. A nnual physical exam - Z00.00 (Primary) 2 . T ype 2 diabetes mellitus without complication - E11.9 3 . E ssential hypertension - I10 4 . E levated LFTs - R79.89 5 . P ure hypercholesterolemia - E78.00 6 . O SA (obstructive sleep apnea) - G47.33 Plan: * Treatment: 2. T ype 2 diabetes mellitus without complication Notes: doing a little worse with weight gain. 3. E ssential hypertension Notes: doing well 4. E levated LFTs L AB: Liver Panel (Ordered for 05/19/2025) 5. P ure hypercholesterolemia Notes: feel that his statins cause his cramps so will try going without statins and if no cramps will send to corporate development manager for injectable cholesterol 6. O SA (obstructive sleep apnea) Notes: never had a study but refuses to use sleep machine * Procedure Codes: * Preventive Medicine: Diabetes Care Plan: P atient Lifestyle Goals N eeds to maintain diet control.?Treatment Goals A 1C< 7. B arriers N o specific barriers, doing well. E xpected Outcome m aintaining stable blood sugar levels within a target range. * Follow Up: 3 Months * * Sign off status: Completed true * Provider: Ankita Lopez MD Date: 0 02/16/2025 Generated for Marie grider/Misael/Erica on: 1 12:21 PM EDT History and Physical Notes * HPI (History of Present Illness) Category Sub-Category Detail Notes Category Not es Symptom(s) patient is a 75 yo male here for annual visitn with review of recent labs and follow up of chronic issues got leg cramps come after any activity. Depression Screening PHQ-9 Little inte rest or [...] clubbing, cyanosi s, or edema MALE GENITOURINARY: uncircumcised, teste s descended bilaterally, no testicular mass RECTAL EXAM: normal tone, no exte rnal hemorrhoids, no masses palpable, prostate normal, stool guaiac negative ORAL CAVITY: mucosa moist FOOT EXAM: Date: 02/16/2025 normal pinprick . normal pulse. normal light touch.
--- OUTSIDE RECORDS SUMMARY | 2025-05-19 03:15 | XMS_ITS ---
Author Organization Rancho Lopez MD Address [address] [place] [phone] Care Team Providers Care Director Of Scientific Research Name Role Rancho Flanagan Primary Care Provider [phone] Results Component Value Reference Range Notes Liver Panel (Not yet reviewe d by provider) Interpretation: Performing Lab:[facility], [address] [place] [phone] Notes/Report: Bilirubin Total 0.7 0.0-1.0 mg/dL Bilirubin Direct 0.2 0.0-0.5 mg/dL Aspartate Amino Transferase 35 5-37 U/L Alanine Aminotransferase 47 0-40 U/L Total Protein 7.3 6.5-8.0 g/dL Albumin Level 4.4 3.5-5.0 g/dL Alkaline Phosphatase 75 39-117 U/L REASON FOR VISIT liver Immunizations Vaccine Route Administration Date Status Comme nts Influenza High Dose IM Intramuscular 05/19/2025 Administer ed Encounters Encounter Location Date Provider Diagnosis Rancho Lopez MD [address] [place] [phone] 05/19/2025 Rancho Lopez Elevated LFTs R79.89 and Encounter for administration of vaccine Z23 Assessments Encounter Date Diagnosis (ICD Code) Assessment Notes Treatment Notes Treatment Clinical Notes Section Notes 05/19/2025 Elevated LFTs (ICD-10 - R79.89) 05/19/2025 Encounter for administration of vaccine (ICD-10 - Z23) Plan Of Treatment Pending Test Test Name Order Date Liver Panel 05/19/2025 Next Appt Details Provider Name:Rancho Oleary ier, 05/26/2025 10:15:00 AM, [address] [place] [address], [address] [place] [address], [phone], Provider Name:Rancho Oleary ier, 02/12/2026 07:45:00 AM, [address] [place] [address], [place] [address], [place], [place], [phone], Provider Name:Rancho Oleary ier, 02/19/2026 09:30:00 AM, [address] [place] [address], [place] [address], [place], [place], [phone], Progress Notes * Celestine JOYCE LDOB:[birth year] (75 yo M)Acc No.[id number]:05/19/2025 Progress Note Patient: Celestine GASTON Provider: Ankita Lopez MD :1950 A ge:75 Y S ex:Male Date:05/19/2025 Address:[address] [place], [place] [phone] Subjective: * Chief Complaints: * 1 . Liver. * Medical History: Objective: * Vitals: Assessment: * Assessment: 1. E levated LFTs - R79.89 2 . E ncounter for administration of vaccine - Z23 Plan: * Treatment: * Immunizations: Influenza High Dose : 0.5 mL (Dose No:1) (Route: Intramuscular) given by Kaylene Wren , Office Staff on Left Deltoid * Procedure Codes: 9 0662 FLU VACC PRSV FREE INC ANTIG, 11644 IMMUNIZATION ADMIN * * The named appointment provid er may or may not be the originator of this progress note, and it is not deemed complete until electronically signed by the appointment provider. Sign off status: Pending * Provider: Ankita Lopez MD Date: 1 Generated for Marie grider/Misael/Mariosmitting on: 1 12:21 PM EDT
[2025-05-19 11:37] LABS: Alanine Aminotransferase 47 U/L (0-40); Albumin Level 4.4 g/dL (3.5-5.0); Alkaline Phosphatase 75 U/L (39-117); Aspartate Amino Transferase 35 U/L (5-37); Total Protein 7.3 g/dL (6.5-8.0)
--- OUTSIDE RECORDS SUMMARY | 2025-05-19 12:20 | XMS_ITS | Patient Health Record ---
Author Organization [facility] Address [address] [place] [address] Care Team Providers Care Storage Brine Worker Name Role Phone Rancho Lopez MD Primary Care Provider Jose Weaver [phone] Allergies Allergen (clinical drug ingredient) Drug/Non Drug [...] 100 GM as directed Orally A S DIRECTED; Duration: 1 dose 12/29/2013 Active Problems Problem Type SNOMED Code ICD Code Onset Dates Problem Status W/U Status Risk Notes Problem Screening for malignant neoplasm of colon (847794457) Screening for colorectal cancer (V76.51) Active confirmed Problem Long-term current use of drug therapy ([id number]) oysterman current use of antithrombotics /antiplatelets (V58.63) Active confirmed Plan Of Treatment Future Test Test Name Order Date COLONOSCOPY 12/29/2013 Next Appt Details Provider Name:Jose Baez , 09/05/2025 10:50:00 AM, [address], [address], [place], [phone], Insurance Providers Payer Name Payer Address Payer Phone Subscriber Number Group Number Insured Name Patient Relationship to Insured Coverage Start Date Coverage End Date [facility] [address] [place] [address] [id number] Self - patient is the insured Medical (General) History Medical History History ICD Code Denies MD,DM,CVA,Lung disease,renal dise ase Hyperlidiemia Depression Neg. colonoscopy in 06/2001 with , and a negative colonoscopy in the early with Dr. Rush On Plavix for a ? of a TIA Surgical History Surgery Date(Month/Year) knee surgery 2012 back surgery--L5 disc 1997 [facility]
--- OUTSIDE RECORDS SUMMARY | 2025-05-19 12:21 | XMS_ITS | Patient Health Record ---
Author Organization Rancho Lopez MD Address [address] [place], [place] [id number] Care Team Providers Care Medicaid Analyst Name Role Phone Rancho Lopez Primary Care Provider Allergies Allergen (clinical drug ingredient) Drug/Non Drug Allergy documented on EMR Reaction Allergy Type Onset Date Status paroxetine Paxil sexual dysfunction Drug Allergy Active lisinopril Lisinopril cough Drug Allergy Activ e ivp dye (uncoded) SWELLING Allergy Ac tive Results Component Value Reference Range Notes Liver Panel Reviewed date:08/09/2024 05:04:20 PM Interpretation: Performing Lab:[facility], [address] [place] [phone] Notes/Report: Bilirubin Total 0.7 0.0-1.0 mg/dL Bilirubin Direct 0.2 0.0-0.5 mg/dL Aspartate Amino Transferase 34 5-37 U/L Alanine Aminotransferase 32 0-40 U/L Total Protein 7.7 6.5-8.0 g/dL Albumin Level 4.4 3.5-5.0 g/dL Alkaline Phosphatase 71 39-117 U/L Glucose Fasting Reviewed date:08/09/2024 05:10:35 PM Interpretation: Performing Lab:[facility], [address] [place] [phone] Notes/Report: Glucose Fasting 121 60-99 mg/dL A fasting glucose from 100-125 mg/dl is considered impaired (pre-diabetes). Lipid Panel with Reflex Reviewed date:08/09/2024 05:10:43 PM Interpretation: Performing Lab:[facility], [address] [place] [phone] Notes/Report: Triglycerides 159 <150 mg/dL Desirable Triglyceride: [...] A1c Reviewed date:08/09/2024 05:01:28 PM Interpretation: Performing Lab:[facility], [address] [place] [phone] Notes/Report: Hemoglobin A1c % 6.4 <6.0 % [...] average glucose, using the formula of the M0Z-Coifvze Average Glucose study (ADAG), Diabetes Care, Vol.31,#8, Feb. 2007 Complete Blood Count Auto Di ff Reviewed date:02/10/2025 04:21:22 PM Interpretation: Performing Lab:[facility], [address] [place] [phone] Notes/Report: White Blood Count 7.7 4.8-10.8 X10*3/uL [...] NRBC Abs Auto 0.000 0.0-0.012 X10*3/uL Comprehensive [place]. Panel Fa st Reviewed date:02/10/2025 04:20:55 PM Interpretation: Performing Lab:[facility], [address] [place] [phone] Notes/Report: Sodium 138 135-145 mmol/L Potassium 4.5 [...] U/L Lipid Panel Reviewed date:02/16/2025 11:49:56 AM Interpretation:[facility] 02/16 Performing Lab:[address] [phone] Notes/Report: Triglycerides 222 <150 mg/dL Desirable Triglyceride: [...] (Free>4and<10) Reviewed date:02/09/2025 12:42:26 PM Interpretation: Performing Lab:[address] [phone] Notes/Report: PSA,Total (Free>4and<10) 2.55 0.00-4.00 ng/mL A [...] Random Reviewed date:02/09/2025 12:51:42 PM Interpretation: Performing Lab:[address] [phone] Notes/Report: Creatinine Urine 155.31 Microalbumin Urine 25.0 Microalbum/Creatinine Ratio Ur 16.0 <30 ug/mg cr Albumin/Creatinine Ratio Reference Ranges: Normal: < 30 ug/mg creatinine Microalbuminuria: 30 - 300 ug/mg creatinine Clinical Albuminuria: > 300 ug/mg creatinine Hemoglobin A1c Reviewed date:02/09/2025 12:42:17 PM Interpretation: Performing Lab:[address] [phone] Notes/Report: Hemoglobin A1c % 6.7 <6.0 % [...] average glucose, using the formula of the X0H-Byuhpjg Average Glucose study (ADAG), Diabetes Care, Vol.31,#8, Feb. 2007 UA ClnCatch+Micro w/rflx Cul t Reviewed date:02/10/2025 04:16:31 PM Interpretation: Performing Lab:[address] [phone] Notes/Report: [id number] Urine, Clean Catch Color Urine Yellow Appearance Urine Clear PH 5.0 5.0-9.0 Glucose Urine UA Negative Negative mg/dL Urine Blood Negative Negative Specific Happy - Urine 1.020 1.005-1.025 Urine Protein Negative Neg-Trace mg/dL Urine Ketones Negative Negative mg/dL Nitrite Urine Negative Negative Leukocyte Esterase Urine Negative Negative RBC Urine 0-2 0-2 /HPF WBC Urine 0-5 0-5 /HPF Squamous Epithelial Cell Urine 0-2 0-2 /HPF Bacteria Urine None Seen None Seen Hyaline Casts Urine 0-2 0-2 /LPF Liver Panel (Not yet reviewe d by provider) Interpretation: Performing Lab:[facility], [address] [place] [phone] Notes/Report: Bilirubin Total 0.7 0.0-1.0 mg/dL Bilirubin Direct 0.2 0.0-0.5 mg/dL Aspartate Amino Transferase 35 5-37 U/L Alanine Aminotransferase 47 0-40 U/L Total Protein 7.3 6.5-8.0 g/dL Albumin Level 4.4 3.5-5.0 g/dL Alkaline Phosphatase 75 39-117 U/L Domonique Hilliard Reviewed date:08/09/2024 05:01:19 PM Interpretation: Performing Lab:[facility], [address] [place] [phone] Notes/Report: Domonique Hilliard See Note Specimen held untested for 24 hours; Call to request Chemistry testing. Reason For Referral No Information Medications Medication SIG (Take, Route, Frequency, Duration) Notes Start Date End Date Status CeleBREX 200 MG 1 capsule Orally Onc e a day for 90 days 05/20/2016 Not-Taking Ambien 5 MG 1 tablet at bedtime Orally Once a day for 90 days 07/04/2016 Not-Taking Ambien 5 MG 1 tablet at bedtime Orally Once a day 08/22/2011 Not-Taking Rosuvastatin Calcium 40 MG TAKE ONE TABLET BY MOUTH EVERY DAY Active metFORMIN HCl 500 MG TAKE ONE TABLET BY MOUTH TWO TIMES A DAY WITH MEALS Active Valsartan-hydroCHLOROthia zide 80-12.5 MG TAKE 1 TABLET BY MOUTH ONCE DAILY. for 90 Active Trulicity 3 MG/0.5ML USE DIRECTED UND ER THE SKIN ONCE WEEKLY for 28 Active Aspirin Adult Low Dose 81 MG 1 tablet Orally Once a day for 30 day(s) 01/12/2018 Active Ketoconazole 2 % 1 application to affected area Externally Once a day for 30 days 10/15/2018 Active Immunizations Vaccine Route Administration Date Status Comme nts Flu Vaccine Unknown 05/05/2012 Administered TDaP IM Intramuscular 08/30/2012 Administered DECLINED, FLU Unknown 09/05/2013 Administered Fluarix Quadrivalent IM Intramuscular 04/04/2014 Trang guerra PPSV23 (Pnemovax) IM Intramuscular 04/14/2014 Administered Fluarix Quadrivalent IM Intramuscular 04/24/2015 Admingurwinder guerra Fluarix Quadrivalent IM Intramuscular 05/20/2016 Admingurwinder guerra Prevnar 13 IM Intramuscular 07/04/2016 Administered Fluarix Quadrivalent IM Intramuscular 05/04/2017 Admingurwinder guerra pt was given the vaccine at [facility]. Fluarix Quadrivalent IM Intramuscular 04/19/2018 Admingurwinder red Fluarix Quadrivalent Unknown 04/11/2019 Administered Bi g Y PPSV23 (Pnemovax) IM Intramuscular 08/02/2019 Administered SARS-COV-2 Pfizer Unknown 10/24/2020 Administered SARS-COV-2 Pfizer Unknown 11/15/2020 Administered Influenza High Dose Unknown 05/10/2022 Administered BIg Y Influenza High Dose IM Intramuscular 04/17/2023 Administer ed Influenza High Dose IM Intramuscular 08/09/2024 Administer ed Influenza High Dose IM Intramuscular 05/19/2025 Administer ed Flu Vaccine Unknown 04/04/2014 Pending Social History Tobacco Use: Social History Observation [...] Problem Status W/U Status Risk Notes Problem Transient cerebral ischemia (405499392) 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 Problem Insomnia (982974220) Insomnia (780.52) Active confirmed Problem Essential hypertension (55090207) Essential hypertension (I10) Active confirmed Problem 588752219 Mild intermitten t asthma without complication (J45.20) Active confirmed Problem 72913708 Type 2 diabetes mellitus without complication (E11.9) Active confirmed Problem 754509624 Low HDL (under 4 0) (E78.6) Active confirmed Problem 398094556 Non morbid obesi ty due to excess 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) Active confirmed Problem 63801089 Tinea (B35.9) Active confirmed Problem 47399644 Dysthymia (F34.1) Active confirmed Problem 399148584 Pure hypercholesterolemia (E78.00) Active confirmed Problem 27342572 DESMOND (obstructive sleep apnea) (G47.33) Active confirmed Vital Signs Blood pressure diastolic 88 mm Hg 02/16/2025 britni ght is up 6 pounds since 08-16-24 Height 67.50 in 02/16/2025 weight is up 6 pounds since 08-16-24 Blood pressure systolic 118 mm Hg 02/16/2025 weig ht is up 6 pounds since 08-16-24 Weight 235 lbs 02/16/2025 weight is up 6 pounds since 08-16-24 BMI 36.26 kg/m2 02/16/2025 weight is up 6 pounds since 08-16-24 Encounters Encounter Location Date Provider Diagnosis Rancho Lopez MD [address] [place] [id number] 08/09/2024 Rancho Lopez Type 2 diabetes shaquille itus without complication E11.9 ; Encounter for immunization Z23 and Pure hypercholesterolemia E78.00 Rancho Lopez MD [address] [place] [id number] 02/09/2025 Rancho Lopez Blood tests for rout ine general physical examination Z00.00 ; Type 2 diabetes mellitus without complication E11.9 ; Pure hypercholesterolemia E78.00 and Essential hypertension I10 Rancho Lopez MD [address] [place] [address] Drive [address] [place] [id number] 05/19/2025 Rancho Lopez Elevated LFTs R79.89 and Encounter for administration of vaccine Z23 Rancho Lopez MD [address] [place] [id number] 08/16/2024 Rancho Lopez Type 2 diabetes shaquille itus without complication E11.9 ; Pure hypercholesterolemia E78.00 and Essential hypertension I10 Rancho Lopez MD [address] [place] [address] Drive [address] [place] [id number] 02/16/2025 Rancho Lopez Annual physical exam Z00.00 ; Type 2 diabetes mellitus without complication E11.9 ; Essential hypertension I10 ; Elevated LFTs R79.89 ; Pure hypercholesterolemia E78.00 and DESMOND (obstructive sleep apnea) G47.33 Rancho Lopez MD [address] [place] [id number] [facility] Encounter Date Diagnosis (ICD Code) Assessment Notes Treatment Notes Treatment Clinical Notes Section Notes 08/09/2024 Type 2 diabetes mellitus without complication (ICD-10 - E11.9) 08/09/2024 Encounter for immunization (ICD-10 - Z23) 02/09/[address] ine general physical examination (ICD-10 - Z00.00) 05/19/2025 Elevated LFTs (ICD-1 0 - R79.89) 08/16/2024 Type 2 diabetes mellitus without complication (ICD-10 - E11.9) having a lot of heartburn from the trulicity so mando try a lower dose. is doing well with weight loss 08/16/2024 Pure hypercholesterolemia (ICD-10 - E78.00) stable, will continue current regiment 02/16/2025 Annual physical exam (ICD-10 - Z00.00) Labs reviewed and discussed with patient 02/16/2025 Type 2 diabetes mellitus without complication (ICD-10 - E11.9) doing a little worse with weight gain. 08/09/2024 Pure hypercholesterolemia (ICD-10 - E78.00) 02/09/2025 Type 2 diabetes mellitus without complication (ICD-10 - E11.9) 05/19/2025 Encounter for administration of vaccine (ICD-10 - Z23) 08/16/2024 Essential hypertensi on (ICD-10 - I10) running a bit high today, will continue to monitor and will continue current regiment 02/16/2025 Essential hypertensi on (ICD-10 - I10) doing well 02/09/2025 Pure hypercholesterolemia (ICD-10 - E78.00) 02/16/2025 Elevated LFTs (ICD-1 0 - R79.89) 02/09/2025 Essential hypertensi on (ICD-10 - I10) 02/16/2025 Pure hypercholesterolemia (ICD-10 - E78.00) feel that his statins cause his cramps so will try going without statins and if no cramps will send to [facility] for injectable cholesterol 02/16/2025 DESMOND (obstructive sle ep apnea) (ICD-10 - G47.33) never had a study but refuses to use sleep machine Plan Of Treatment Pending Test Test Name Order Date Electrocardiogram (EKG) 01/20/2019 Electrocardiogram (EKG) 12/28/2015 Liver Panel 05/19/2025 Next Appt Details Provider Name:Rancho Oleary ier, 05/26/2025 10:15:00 AM, [address] [facility], [address] [facility], [place], [place], [phone], Provider Name:Rancho Oleary ier, 02/12/2026 07:45:00 AM, [address] [place] [address], [address] [facility], [place], [place], [phone], Provider Name:Rancho Oleary ier, 02/19/2026 09:30:00 AM, [address] [place] [address], [address] [facility], [place], [place], [phone], Insurance Providers Payer Name Payer Address Payer Phone Subscriber Number Group Number Insured Name Patient Relationship to Insured Coverage Start Date Coverage End Date [employer] [address] [place], [place] [id number] [phone] [id number] Celestine Joyce Self - patient is the insured Medical (General) History Medical History History ICD Code colonoscopy 2000; colonoscop y 03/24/14 - repeat 10 years getting colonoscopy 08/21
--- OUTSIDE RECORDS SUMMARY | 2025-05-19 12:21 | XMS_ITS | Clinical Summary ---
Author Organization [facility] Address [address] [place] [address] Care Team Providers Care Certified Coatings Inspector Name Role Phone Unknown Primary Care Provider [phone] Social History Tobacco Use Types Packs/Day Years Used Date Smoking Tobacco: Never Assessed Sex and Gender Information Value Date Recorded Sex Assigned at Not on file Legal Sex Male 6:39 PM EST Gender Identity Not on file Sexual Orientation Not on file Plan of Treatment Health Maintenance Due Date Last Done Comments Advance Care Planning 1950 Hepatitis C Virus Screening 1950 DTaP/Tdap/Td Vaccines (1 - Tdap) 01/09/1971 Colonoscopy 01/09/1997 Pneumococcal Vaccines 50+ (1 of 1 - PCV) 01/09/2002 Zoster (Shingles) Vaccine (1 of 2) 01/09/2002 Influenza Vaccine 02/24/2025 04/19/2018, , 04/24/2015, Additional history exists COVID-19 Vaccine ( season) 2025 11/15/2020, 10/24/2020 RSV Vaccine 50 years and older and Patients (1 - 1-dose 75+ series) 01/09/2027 Hepatitis B Vaccines Aged Out No long er eligible based on patient's age to complete this topic Medical Devices Implanted Type Area Gasoline Locomotive Crane Operator Device Identifier Shelf Expiration Date Model / Serial / Lot [id number] Implanted:Qty: 1 on 01/13/2022 by Chuck Wilson MD at [facility] [employer] [facility] CAR [id number] / [id number] / [id number] Implanted:Qty: 1 on 02/24/2022 by Chuck Wilson MD at [facility], [place] [employer] [id number] / [id number] / [place] [id number] UMR Care Teams Certified Coatings Inspector Relationship Specialty Start Date End Date Unknown Unknow Provider Address PCP - General 02/14/22
== END 2025-05-19 10:42 | disposition home or self-care (01) ==
LOC: HO.LNP 10:41
PROVIDERS: Visit Provider Internal Medicine
DX: R79.89 Other specified abnormal findings of blood chemistry (principal)
CPT/HCPCS: 80076